=== PATIENT | male | born 1970 | race Caucasian/White ===

== ENCOUNTER 2016-10-26 15:03 | Inpatient (IN) | payer BC, OTHER ==
[2016-10-26 15:24] VITALS: BMI 31.1
[2016-10-26] MEDS ORDERED: ACETAMINOPHEN 500 MG TABLET (FP) PO ONE (15:25)
[2016-10-26 16:24] LABS: BASOPHIL 0.4 % (0-2.0); EOSINOPHIL 1.1 % (0-4.5); MCH 27.8 pg (25.7-33.7); MCHC 32.7 g/dl (32.0-35.9); MEAN PLT VOLUME 7.9 fl (7.5-11.1); NEUTROPHILS 74.9 % (42.8-82.8); PLATELET COUNT 439 K/MM3 (134-434); RDW 12.8 % (11.9-15.9); WHITE BLOOD COUNT 15.3 K/mm3 (4.0-10.0)
[2016-10-26 16:29] LABS: URINE APPEARANCE CLEAR; URINE BILIRUBIN NEGATIVE (NEGATIVE); URINE COLOR STRAW; URINE GLUCOSE (UA) 3+ (NEGATIVE); URINE KETONE 2+ (NEGATIVE); URINE LEUK ESTERASE NEGATIVE (NEGATIVE); URINE NITRITE NEGATIVE (NEGATIVE); URINE PROTEIN NEGATIVE (NEGATIVE); URINE UROBILINOGEN NEGATIVE E.U./dl (0.2-1.0)
[2016-10-26 16:35] LABS: URINE BLOOD 1+ (NEGATIVE)
[2016-10-26 16:41] LABS: INR 1.25 (0.82-1.09); PROTHROMBIN TIME (PATIENT) 13.8 SEC (9.98-11.88)
[2016-10-26 16:43] LABS: ACTIVATED PTT 36.2 SECONDS (26.9-34.4)
[2016-10-26 16:59] LABS: URINE RBC <1 /hpf (0-3); URINE WBC <1 /hpf (3-5)
[2016-10-26 17:00] LABS: ALBUMIN 3.3 g/dl (3.4-5.0); ANION GAP 14 (8-16); BILIRUBIN,TOTAL 0.4 mg/dL (0.2-1.0); CALCIUM 8.7 mg/dL (8.5-10.1); CO2 22 mmol/L (21-32); CREATININE 0.8 mg/dL (0.7-1.3); GLUCOSE,RANDOM 107 mg/dL (74-106); SGOT/AST 16 U/L (15-37); SGPT/ALT 19 U/L (12-78); TOT PROT 8.1 g/dl (6.4-8.2)
[2016-10-26 17:03] LABS: ALK PHOS 85 U/L (45-117); TROPONIN I < 0.02 ng/ml (0.00-0.05)
--- NOTE | 2016-10-26 18:06 | PDOC ---
History of Present Illness - General Chief Complaint: Wound Infection Stated Complaint: ULCER/ RT FOOT (WOUND CARE SENT) Time Seen by Provider: 10/26/16 15:18 History Source: Patient Exam Limitations: No Limitations - History of Present Illness Initial Comments: CHIEF COMPLAINT: 46 y/o febrile, tachycardic male with PMH IDDM, osteomyelitis c/o right toe pain, swelling and fever. HISTORY OF PRESENT ILLNESS: The patient states he has been going to the wound clinic for his right big toe for a while and it's been stable. Over the past 2 weeks, he's had the flu and all of a sudden his right toe wound became worse. He states today he went to the wound clinic and they sent him down here. He admits his entire right LE is swollen, red and warm. He also admits to intermittent fevers. He denies IVAN, n/v/d, CP, SOB, abd pain, back pain, streaking. Vital signs on arrival are notable for pulse of 122 secondary to temp of 101. REVIEW OF SYSTEMS: GENERAL/CONSTITUTIONAL: + fever/chills. No weakness. No weight change. HEAD, EYES, EARS, NOSE AND THROAT: No change in vision. No ear pain or discharge. No sore throat. CARDIOVASCULAR: No chest pain or shortness of breath. RESPIRATORY: No cough, wheezing, or hemoptysis. GASTROINTESTINAL: No abd pain, nausea, vomiting, diarrhea. GENITOURINARY: No dysuria, frequency, or change in urination. MUSCULOSKELETAL: +right lower extremity swelling and redness. +open wound on right big toe. No neck or back pain. SKIN: No rash or easy bruising. NEUROLOGIC: No headache, vertigo, loss of consciousness, or loss of sensation. PHYSICAL EXAM: GENERAL: The patient is awake, alert, and fully oriented, in no acute distress. He is well appearing and ambulatory. He has a soft shoe on his right foot. HEAD: Normal with no signs of trauma. ENT: Pupils equal, round and reactive to light, extraocular movements intact, sclera anicteric, conjunctiva clear. Neck supple. LUNGS: Clear to auscultation bilaterally. Normal excursion. No respiratory distress or use of accessory muscles. CV: RRR, S1/S2, no MRG. Cap refill < 2 sec. ABDOMEN: Soft, non-distended, non-tender even to deep palpation, no hepatomegaly or splenomegaly, no masses. EXTREMITIES: Normal range of motion. Significant edematous and erythematous changes to right LE up to right knee with 2+ pitting edema. Right LE is warm to touch compared to left. Medial aspect of right 1st toe has an open wound without evidence of necrotic tissue. No streaking. NEUROLOGICAL: Normal speech, normal gait. CN II-XII grossly intact. PSYCH: Normal mood, normal affect. SKIN: Warm, dry, normal turgor, no rashes or lesions noted. Past History - Past Medical History Allergies/Adverse Reactions: Allergies Allergy/AdvReac Type Severity Reaction Status Date / Time daptomycin [From Cubicin] Allergy Severe Verified 10/26/16 15:18 Home Medications: Ambulatory Orders Canagliflozin [Invokana] 300 mg PO DAILY 02/19/16 Insulin Aspart [Novolog] 10 - 20 units SCJ ASDIR PRN 02/19/16 Insulin Glargine,Hum.rec.anlog [Toujeo Solostar] 70 unit SQ ASDIR 02/19/16 Losartan Potassium [Cozaar -] 50 mg PO DAILY 02/19/16 Aspirin [Ecotrin] 81 mg PO DAILY 03/02/16 Oxycodone HCl/Acetaminophen [Percocet 5-325 mg Tablet] 1 tab PO Q6H #30 tablet MDD 4 04/08/16 Collagenase Clostridium Hist. [Santyl] 90 gm TP DAILY #90 oint...g. 06/08/16 Mupirocin Ointment [Bactroban 2% Ointment -] 1 applic TP BID #30 applic Levofloxacin [Levaquin -] 500 mg PO DAILY #14 tablet 06/29/16 Levofloxacin 500 mg Ivpb [Levaquin 500 mg Premixed Ivpb -] 500 mg IVPB DAILY # 10 bag MDD 1 07/13/16 Collagenase Clostridium Hist. [Santyl] 1 applic TP BID #90 oint...g. 09/28/16 Mupirocin Cream [Bactroban 2% Cream -] 1 applic TP BID #1 tube 09/28/16 Diabetes: Yes HTN: Yes - Psycho/Social/Smoking Cessation Hx Suicidal Ideation: No Smoking History: Never smoked Have you smoked in the past 12 months: Yes Cigars Per Day: 1 *Physical Exam - Vital Signs Last Vital Signs Temp Pulse Resp BP Pulse Ox 101.0 F H 122 H 18 147/83 98 10/26/16 15:19 10/26/16 15:19 10/26/16 15:19 10/26/16 15:19 10/26/16 15:19 ED Treatment Course - LABORATORY CBC & Chemistry Diagram: 10/26/16 16:00 10/26/16 16:00 - ADDITIONAL ORDERS Additional order review: Laboratory Results 10/26/16 10/26/16 10/26/16 16:00 16:00 16:00 INR 1.25 H PTT (Actin FS) 36.2 H Sodium 136 Potassium 4.1 Chloride 100 Carbon Dioxide 22 D Anion Gap 14 BUN 15 D Creatinine 0.8 Creat Clearance w eGFR > 60 Random Glucose 107 H D Calcium 8.7 Total Bilirubin 0.4 D AST 16 ALT 19 Alkaline Phosphatase 85 Creatine Kinase 145 Troponin I < 0.02 Total Protein 8.1 Albumin 3.3 L Urine Color Straw Urine Appearance Clear Urine pH 5.0 Ur Specific [place] 1.032 Urine Protein Negative Urine Glucose (UA) 3+ H Urine Ketones 2+ H Urine Blood 1+ H Urine Nitrite Negative Urine Bilirubin Negative Urine Urobilinogen Negative Ur Leukocyte Esterase Negative Urine RBC <1 Urine WBC <1 10/26/16 16:00 RBC 4.37 MCV 85.0 MCHC 32.7 RDW 12.8 MPV 7.9 D Neutrophils % 74.9 D Lymphocytes % 13.9 D Monocytes % 9.7 Eosinophils % 1.1 Basophils % 0.4 - Medications Given in the ED: ED Medications Discontinued Medications Generic Name Dose Route Start Last Admin Trade Name Freq PRN Reason Stop Dose Admin Acetaminophen 975 mg 10/26/16 15:25 10/26/16 16:04 Tylenol - PO 10/26/16 15:26 975 mg ONCE ONE Administration Medical Decision Making - Medical Decision Making A/P: 46 y/o male with probably osteomyelitis in right big toe. Plan is as follows: 1. Labs 2. Xray right toe 3. CXR CXR IMPRESSION: Unremarkable examination without evidence of acute lung disease. Xray right foot IMPRESSION: Bone erosion involving medial aspect of the first metatarsal head and base of the first proximal phalanx with overlying soft tissue swelling compatible with the clinical history of osteomyelitis. Further evaluation with MRI is needed. WBC count = 15 Ordered IV zosyn and IV fluids Pt had PO tylenol in triage. Spoke with Dr. Reggie Akins, his PCP, who accepts admission and would like Dr. Love consulted for ID. Pt made aware of the plan and is amenable. *DC/Admit/Observation/Transfer Diagnosis at time of Disposition: Wound infection Cellulitis Qualifiers: Site of cellulitis: extremity Site of cellulitis of extremity: toe Laterality: right Qualified Code(s): L03.031 - Cellulitis of right toe Osteomyelitis Qualifiers: Osteomyelitis location: foot Laterality: right Chronicity: acute Qualified Code (s): M86.171 - Other acute osteomyelitis, right ankle and foot - Discharge Dispostion Admit: Yes - Referrals Referrals: Reggie Akins MD [Primary Care Provider] -
[2016-10-26] MEDS ORDERED: SODIUM CHLORIDE 1,000 ML IV STA (18:12)
[2016-10-26] MEDS ORDERED: PIPERACILLIN/TAZOB 3.375 GM/50 ML PRE-DOCKED IVPB ONE (18:13)
[2016-10-26] MEDS ORDERED: PIPERACILLIN/TAZOB 3.375 GM 50 ML IVPB ONE (18:27)
--- NOTE | 2016-10-26 18:34 | PDOC ---
*Physical Exam - Vital Signs Last Vital Signs Temp Pulse Resp BP Pulse Ox 101.0 F H 122 H 18 147/83 98 10/26/16 15:19 10/26/16 15:19 10/26/16 15:19 10/26/16 15:19 10/26/16 15:19 ED Treatment Course - LABORATORY CBC & Chemistry Diagram: 10/26/16 16:00 10/26/16 16:00 - ADDITIONAL ORDERS Additional order review: Laboratory Results 10/26/16 10/26/16 10/26/16 16:00 16:00 16:00 INR 1.25 H PTT (Actin FS) 36.2 H Sodium 136 Potassium 4.1 Chloride 100 Carbon Dioxide 22 D Anion Gap 14 BUN 15 D Creatinine 0.8 Creat Clearance w eGFR > 60 Random Glucose 107 H D Calcium 8.7 Total Bilirubin 0.4 D AST 16 ALT 19 Alkaline Phosphatase 85 Creatine Kinase 145 Troponin I < 0.02 Total Protein 8.1 Albumin 3.3 L Urine Color Straw Urine Appearance Clear Urine pH 5.0 Ur Specific [place] 1.032 Urine Protein Negative Urine Glucose (UA) 3+ H Urine Ketones 2+ H Urine Blood 1+ H Urine Nitrite Negative Urine Bilirubin Negative Urine Urobilinogen Negative Ur Leukocyte Esterase Negative Urine RBC <1 Urine WBC <1 10/26/16 16:00 RBC 4.37 MCV 85.0 MCHC 32.7 RDW 12.8 MPV 7.9 D Neutrophils % 74.9 D Lymphocytes % 13.9 D Monocytes % 9.7 Eosinophils % 1.1 Basophils % 0.4 - Medications Given in the ED: ED Medications Discontinued Medications Generic Name Dose Route Start Last Admin Trade Name Alexis PRN Reason Stop Dose Admin Acetaminophen 975 mg 10/26/16 15:25 10/26/16 16:04 Tylenol - PO 10/26/16 15:26 975 mg ONCE ONE Administration Piperacillin Sod/Tazobactam Sod 3.375 gm 10/26/16 18:13 10/26/16 18:30 Zosyn 3.375gm Ivpb (Pre-Docked) IVPB 10/26/16 18:14 3.375 gm NOW ONE Administration Protocol Medical Decision Making - Medical Decision Making 10/26/16 18:33 Pt seen by the Advanced Practice Provider under my direct supervision Ancillary studies reviewed I agree with plan as outlined by the Advanced Practice Provider JOSELUIS Angela *DC/Admit/Observation/Transfer Diagnosis at time of Disposition: Wound infection Cellulitis Qualifiers: Site of cellulitis: extremity Site of cellulitis of extremity: toe Laterality: right Qualified Code(s): L03.031 - Cellulitis of right toe Osteomyelitis Qualifiers: Osteomyelitis location: foot Laterality: right Chronicity: acute Qualified Code (s): M86.171 - Other acute osteomyelitis, right ankle and foot - Referrals Referrals: Reggie Akins MD [Primary Care Provider] - - Patient Instructions - Post Discharge Activity
[2016-10-26 19:01] LABS: VENOUS PH 7.34 (7.32-7.42)
[2016-10-26] MEDS ORDERED: VANCOMYCIN 1 GRAM (PRE-DOCKED) 1,000 MG/250 ML BAG IVPB ONE (22:00)
[2016-10-26] MEDS: SODIUM CHLORIDE 0.45% 1,000 ML IV SCH (22:23)
[2016-10-26] MEDS: INSULIN SLIDING SCALE (NOVOLOG) 1 VIAL SQ SCH (22:38)
[2016-10-27] MEDS ORDERED: VANCOMYCIN 1 GRAM (PRE-DOCKED) 1,000 MG/250 ML BAG IVPB ONE (00:30)
[2016-10-27] MEDS: INSULIN SLIDING SCALE (NOVOLOG) 1 VIAL SQ SCH ×5 (06:51→21:24)
[2016-10-27 07:21] LABS: MCH 28.5 pg (25.7-33.7); MCHC 32.8 g/dl (32.0-35.9); MEAN CELL VOLUME 86.8 fl (80-96); MEAN PLT VOLUME 7.8 fl (7.5-11.1); PLATELET COUNT 382 K/MM3 (134-434); RDW 12.8 % (11.9-15.9); WHITE BLOOD COUNT 10.5 K/mm3 (4.0-10.0)
[2016-10-27 08:10] LABS: ANION GAP 13 (8-16); BILIRUBIN,TOTAL 0.6 mg/dL (0.2-1.0); CALCIUM 8.5 mg/dL (8.5-10.1); CO2 23 mmol/L (21-32); CREATININE 0.6 mg/dL (0.7-1.3); GLUCOSE,RANDOM 93 mg/dL (74-106); SGOT/AST 12 U/L (15-37); SGPT/ALT 15 U/L (12-78)
[2016-10-27 08:11] LABS: ALK PHOS 71 U/L (45-117); TOT PROT 7.3 g/dl (6.4-8.2)
[2016-10-27] MEDS: ASPIRIN COATED 81 MG TABLET.EC PO SCH (09:56)
[2016-10-27] MEDS: PANTOPRAZOLE 40 MG TABLET (FP) PO SCH (09:56)
[2016-10-27] MEDS ORDERED: INVOKANA 300 MG PO SCH (10:00)
[2016-10-27] MEDS ORDERED: VANCOMYCIN 1 GRAM (PRE-DOCKED) 1,000 MG/250 ML BAG IVPB SCH (10:00)
[2016-10-27] MEDS ORDERED: PNEUMOC 13-VAL CONJ-DIP CRM/PF 0.5 ML DISP.SYRIN IM ONE (10:00)
--- NOTE | 2016-10-27 10:22 | CONSULT ---
Consult Consult Specialty:: Podiatry/Wound Care Referred by:: Reggie Akins Reason for Consultation:: Infected right foot ulcer - History of Present Illness Chief Complaint: I have a wound on my Right foot that has gotten worse History of Present Illness: The patient is well known to me, last seen at wound clinic on 09/28/2016 for a non healing ulcer right. He was told to get MRI but has not to date. Over the past 2 weeks, he's had the flu and all of a sudden his right toe wound became worse. He telephoned me on Monday and I instructed to him top got to he wound clininc on Monday which he did and they sent him for admission based on his clinical presentation.. He admits his entire right LE is swollen, red and warm. He also admits to intermittent fevers. He denies IVAN, n/v/d, CP, SOB, abd pain, back pain, streaking. He states today he feels much better and has no more pain and the redeness and swelling have decreased. - History Source History Provided By: Patient Limitations to Obtaining History: No Limitations - Alcohol/Substance Use Hx Alcohol Use: No - Smoking History Smoking history: Never smoked Have you smoked in the past 12 months: No Home Medications - Allergies Allergies/Adverse Reactions: Allergies Allergy/AdvReac Type Severity Reaction Status Date / Time daptomycin [From Cubicin] Allergy Severe Verified 10/26/16 15:18 - Home Medications Home Medications: Ambulatory Orders Canagliflozin [Invokana] 300 mg PO DAILY 02/19/16 Insulin Aspart [Novolog] 10 - 20 units SCJ ASDIR PRN 02/19/16 Mupirocin Ointment [Bactroban 2% Ointment -] 1 applic TP BID #30 applic Collagenase Clostridium Hist. [Santyl] 1 applic TP BID #90 oint...g. 09/28/16 Review of Systems - Review of Systems Constitutional: reports: No Symptoms Eyes: reports: No Symptoms HENT: reports: No Symptoms Neck: reports: No Symptoms Cardiovascular: reports: No Symptoms Respiratory: reports: No Symptoms Gastrointestinal: reports: No Symptoms Genitourinary: reports: No Symptoms Musculoskeletal: reports: No Symptoms Integumentary: reports: Wound (Right foot: full thickness wound at the DME with 80% granular base and 20% fibrotic tissue, no drainsge no mal odor no ascending cellulits, no plapable nodes. + Superfical bullae noted) Neurological: reports: No Symptoms Endocrine: reports: No Symptoms Hematology/Lymphatic: reports: No Symptoms Psychiatric: reports: No Symptoms Pain Intensity: 0 (Patetin neuropathic due to DM) Physical Exam Vital Signs: Vital Signs Temperature 98.8 F 10/27/16 08:00 Pulse Rate 104 H 10/27/16 08:00 Respiratory Rate 20 10/27/16 08:00 Blood Pressure 141/82 10/27/16 08:00 O2 Sat by Pulse Oximetry (%) 96 10/27/16 08:00 Constitutional: Yes: Well Nourished, No Distress, Calm Musculoskeletal: Yes: WNL Edema: No Edema: LLE: Trace, RLE: Trace Peripheral Pulses WNL: Yes Integumentary: Yes: Other (Right foot: full thickness wound at the DME with 80% granular base and 20% fibrotic tissue, no drainsge no mal odor no ascending cellulits, no plapable nodes. + Superfical bullae noted) Wound/Incision: Yes: Dressing Dry and Intact Neurological: Yes: WNL, Alert, Oriented, Cran Nerves II-XII Intact ...Motor Strength: WNL Psychiatric: Yes: Alert, Oriented Labs: CBC, BMP 10/27/16 05:35 10/27/16 05:35 Imaging - Results Chest X-ray: Report Reviewed X-ray: Report Reviewed, Image Reviewed (Changes concictant with Osteomyelitis. Will get MRI) Other: Pending (Bone Scan) Problem List - Problems (1) Cellulitis Assessment/Plan: Continue Iv Abx as cellulitis is resolving Code(s): L03.90 - CELLULITIS, UNSPECIFIED Qualifiers: Site of cellulitis: extremity Site of cellulitis of extremity: toe Laterality: right Qualified Code(s): L03.031 - Cellulitis of right toe (2) Wound infection Assessment/Plan: Contiue Abx Collagenase dressing Daily Code(s): T14.8 - OTHER INJURY OF UNSPECIFIED BODY REGION L08.9 - LOCAL INFECTION OF THE SKIN AND SUBCUTANEOUS TISSUE, UNSP (3) Osteomyelitis due to secondary diabetes Assessment/Plan: No surgery needed at this time. I did D/W patient the need for possible future surgery. At this time I would recommend 1) MRI 2) PIC Line wth 6 weeks Abx Code(s): E13.69 - OTH DIABETES MELLITUS WITH OTHER SPECIFIED COMPLICATION M86.9 - OSTEOMYELITIS, UNSPECIFIED (4) Type 2 diabetes mellitus with foot ulcer Assessment/Plan: As per primary team Code(s): E11.621 - TYPE 2 DIABETES MELLITUS WITH FOOT ULCER L97.509 - NON-PRESSURE CHRONIC ULCER OTH PRT UNSP FOOT W UNSP SEVERITY (5) Hematoma Assessment/Plan: Aseptically drained at bedside with Betadine DSD applied Code(s): T14.8 - OTHER INJURY OF UNSPECIFIED BODY REGION Assessment/Plan See above Recommend: 1) MRI to document and confirm level of OM ( will be helpful in if future surgery needed ) 2) PIC Line with 6 weeks IV Abx 3) Collagenase daily to Right foot ulcer 4) Follow up in Wound Center upon D/C 5) Re consult as needed
--- NOTE | 2016-10-27 10:57 | HP ---
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 wd last bernardo he seen me 7 16 aic 7.5 w me aic 6.3 had flu 2 wks ago now subsided has no other complaints History Source: Patient Limitations to Obtaining History: No Limitations - Past Medical History Infectious Disease: Yes: Other (rt toe great) - Past Surgical History Past Surgical History: Yes: Amputation (rt mid toe and rt nerve realease w rt sole bone sx) - Smoking History Smoking history: Never smoked Have you smoked in the past 12 months: No - Alcohol/Substance Use Hx Alcohol Use: No - Social History ADL: Independent History of Recent Travel: No Home Medications - Allergies Allergies/Adverse Reactions: Allergies Allergy/AdvReac Type Severity Reaction Status Date / Time daptomycin [From Cubicin] Allergy Severe Verified 10/26/16 15:18 - Home Medications Home Medications: Ambulatory Orders Canagliflozin [Invokana] 300 mg PO DAILY 02/19/16 Insulin Aspart [Novolog] 10 - 20 units SCJ ASDIR PRN 02/19/16 Mupirocin Ointment [Bactroban 2% Ointment -] 1 applic TP BID #30 applic Collagenase Clostridium Hist. [Santyl] 1 applic TP BID #90 oint...g. 09/28/16 Family Disease History - Family Disease History Family History: Unremarkable Review of Systems - Review of Systems Constitutional: reports: No Symptoms HENT: reports: No Symptoms Neck: reports: No Symptoms Respiratory: reports: No Symptoms Gastrointestinal: reports: No Symptoms Genitourinary: reports: No Symptoms Breasts: reports: No Symptoms Reported Musculoskeletal: reports: Other (rt toe mild pain) Integumentary: reports: No Symptoms Neurological: reports: No Symptoms Endocrine: reports: No Symptoms Hematology/Lymphatic: reports: No Symptoms Psychiatric: reports: No Symptoms Physical Examination Vital Signs: Vital Signs Temperature 98.8 F 10/27/16 08:00 Pulse Rate 104 H 10/27/16 08:00 Respiratory Rate 20 10/27/16 08:00 Blood Pressure 141/82 10/27/16 08:00 O2 Sat by Pulse Oximetry (%) 96 10/27/16 08:00 Constitutional: Yes: Well Nourished Eyes: Yes: WNL HENT: Yes: WNL Neck: Yes: WNL Cardiovascular: Yes: WNL Respiratory: Yes: WNL Gastrointestinal: Yes: WNL ...Rectal Exam: Yes: Deferred Renal/: Yes: WNL Breast(s): Yes: WNL Musculoskeletal: Yes: WNL Extremities: Yes: Other (rt dsd intact) Edema: No Peripheral Pulses WNL: Yes Integumentary: Yes: WNL Wound/Incision: Yes: Dressing Dry and Intact Neurological: Yes: WNL ...Motor Strength: WNL Psychiatric: Yes: WNL Labs: CBC, BMP 10/27/16 05:35 10/27/16 05:35 Assessment/Plan id to f/u peak trough levels bone scan to conferm ostoeomylitis cont tx as is //? debridment needed labs in am cont tight control fs
--- NOTE | 2016-10-27 14:47 | PN ---
Progress Note (short form) - Note Progress Note: ID Consult dictated Infected foot ulcer/ cellulitis R foot Possible R foot abscess/ osteomyelitis IDDM Surgical evaluation MRI Empiric vancomycin/ zosyn
--- NOTE | 2016-10-27 14:48 | EKG ---
Test Reason : Blood Pressure : / mmHG Vent. Rate : 099 BPM Atrial Rate : 099 BPM P-R Int : 120 ms QRS Dur : 088 ms QT Int : 346 ms P-R-T Axes : 055 -12 010 degrees QTc Int : 444 ms NORMAL SINUS RHYTHM NORMAL ECG NO PREVIOUS ECGS AVAILABLE Confirmed by JEFF MCNALLY MD ([id number]) on 10/27/2016 2:47:34 PM Referred By: Confirmed By:JEFF MCNALLY MD
--- NOTE | 2016-10-27 15:04 | CONSULT ---
- Consultation REQUESTED PROVIDER: Dr. Culp, vascular surgery CONSULT REQUEST: We have been asked to surgically evaluate this patient for right foot diabetic ulcer. PCP: Reggie Akins HISTORY OF PRESENT ILLNESS: 46 yo male with PMH of IDDM and osteomyelitis s/p right third toe amputation presented with right first toe/metatarsal head ulceration since June 2016. Patient by Dr. Culp and then Dr. Vale at the wound care clinic for his nonhealing ulcer. Patient states he had fever and chills last week and thought he was getting the flu. Following this he developed pain worsening pain in this right foot around the ulceration and the pain traveled up his leg. He admits to having some increased swelling and redness in his right foot, but feels this is improving. The patient states he was seen earlier today by Dr. Vale who was able to drain some blood from his foot. PMHx: IDDM PSHx: right 3rd toe amputation Home Medications Medication Instructions Recorded Canagliflozin [Invokana] 300 mg PO DAILY 02/19/16 Insulin Aspart [Novolog] 10 - 20 units SCJ ASDIR PRN 02/19/16 Mupirocin Ointment [Bactroban 2% 1 applic TP BID #30 applic 06/08/16 Ointment -] Collagenase Clostridium Hist. 1 applic TP BID #90 oint...g. 09/28/16 [Santyl] Allergies Allergy/AdvReac Type Severity Reaction Status Date / Time daptomycin [From Cubicin] Allergy Severe Verified 10/26/16 15:18 REVIEW OF SYSTEMS: CONSTITUTIONAL: Admits: Fever, chills (resolved) Absent: generalized weakness, loss of appetite CARDIOVASCULAR: Absent: chest pain, syncope, palpitations RESPIRATORY: Absent: cough, shortness of breath GASTROINTESTINAL: Absent: abdominal pain, abdominal distension, nausea, vomiting, diarrhea, constipation GENITOURINARY: Absent: dysuria, frequency, urgency MUSCULOSKELETAL: Absent: myalgia, arthralgia, back pain, neck pain SKIN: Present: Ulceration right foot, first metatarsal head Absent: rash, itching HEMATOLOGIC/IMMUNOLOGIC: Absent: easy bleeding, easy bruising NEUROLOGIC: Present: Admits occasional tingling in lower extremities Absent: headache, dizziness PSYCHIATRIC: Absent: anxiety, depression PHYSICAL EXAM: GENERAL: Awake, alert, and fully oriented, in no acute distress. HEAD: Normal with no signs of trauma. EYES: PERRL, sclera anicteric, conjunctiva clear. NECK: Normal ROM, supple LUNGS: Clear to auscultation bilat anteriorly HEART: Regular rate and rhythm ABDOMEN: Soft, nontender, not distended MUSCULOSKELETAL: Normal ROM at all joints UPPER EXTREMITIES: 2+ pulses, warm, well-perfused. No cyanosis. Cap refill <2 seconds. No peripheral edema. LOWER EXTREMITIES: 2+ pulses, warm, well-perfused. RLE with approx 3x3 cm ulceration right first metatarsal head without odor or ascending erythema of RLE NEUROLOGICAL: Normal speech, gait not observed. PSYCH: Cooperative. Good eye contact. Appropriate mood and affect. SKIN: Warm, dry, normal turgor, no rashes or lesions noted. Vital Signs Temperature 98.0 F 10/27/16 14:00 Pulse Rate 93 H 10/27/16 14:00 Respiratory Rate 21 10/27/16 14:00 Blood Pressure 141/82 10/27/16 08:00 O2 Sat by Pulse Oximetry (%) 96 10/27/16 08:00 Lab Results WBC 10.5 K/mm3 (4.0-10.0) H D 10/27/16 05:35 RBC 4.13 M/mm3 (4.00-5.60) 10/27/16 05:35 Hgb 11.8 GM/dL (11.7-16.9) 10/27/16 05:35 Hct 35.9 % (35.4-49) 10/27/16 05:35 MCV 86.8 fl (80-96) 10/27/16 05:35 MCHC 32.8 g/dl (32.0-35.9) 10/27/16 05:35 RDW 12.8 % (11.9-15.9) 10/27/16 05:35 Plt Count 382 K/MM3 (134-434) 10/27/16 05:35 Sodium 139 mmol/L (136-145) 10/27/16 05:35 Potassium 4.3 mmol/L (3.5-5.1) 10/27/16 05:35 Chloride 103 mmol/L (98-107) 10/27/16 05:35 Carbon Dioxide 23 mmol/L (21-32) 10/27/16 05:35 Anion Gap 13 (8-16) 10/27/16 05:35 BUN 8 mg/dL (7-18) D 10/27/16 05:35 Creatinine 0.6 mg/dL (0.7-1.3) L D 10/27/16 05:35 Random Glucose 93 mg/dL (74-106) 10/27/16 05:35 Calcium 8.5 mg/dL (8.5-10.1) 10/27/16 05:35 Blood Type O POSITIVE 10/26/16 21:38 Antibody Screen Negative 10/26/16 21:30 INR 1.25 (0.82-1.09) H 10/26/16 16:00 Problem List - Problems (1) Cellulitis Code(s): L03.90 - CELLULITIS, UNSPECIFIED Qualifiers: Site of cellulitis: extremity Site of cellulitis of extremity: toe Laterality: right Qualified Code(s): L03.031 - Cellulitis of right toe (2) Type 2 diabetes mellitus with foot ulcer Assessment/Plan: Patient has good peripheral pulses, no need for vascular intervention at this time Continue Abx per ID Continue Santyl to right foot ulcer MRI ordered by ID Continue care by Podiatry Code(s): E11.621 - TYPE 2 DIABETES MELLITUS WITH FOOT ULCER L97.509 - NON-PRESSURE CHRONIC ULCER OTH PRT UNSP FOOT W UNSP SEVERITY Visit type - Case Type Case Type: ED Admission - New patient This patient is new to me today: Yes Date on this admission: 10/27/16
[2016-10-27] MEDS: PIPERACILLIN/TAZOB 3.375 GM 50 ML IVPB SCH ×2 (15:36→16:29)
--- NOTE | 2016-10-27 16:08 | CONS ---
DATE OF CONSULTATION: DATE OF DICTATION: 10/27/2016 The patient is a 46-year-old male, diabetic, evaluated for cellulitis and infected foot ulcer of the right foot. The patient has had had a history of diabetic foot infections in the past. Approximately 3 years ago he developed cellulitis of the right 3rd toe, eventually requiring amputation. He now presents with a 2-week history of worsening right foot swelling, erythema, and pain. He had developed an ulcer on the lateral aspect of the 1st metatarsal head and was being followed in the wound care center. He was advised by a tax record clerk to have an MRI but apparently this was not done. His foot became progressively more swollen, red, and tender. [facility] and was referred to the emergency room for admission. He has been experiencing some subjective fever. In the emergency room, his temperature was 101. He denies any purulent wound drainage. Patient has had a history of diabetic foot infections in the past. At one point he was on outpatient IV antibiotic therapy with DAPTOMYCIN. He specifically denies history of MRSA infection, however. Past medical history positive for insulin-dependent diabetes mellitus, osteomyelitis, hypertension. Allergies to DAPTOMYCIN. Patient reported diffuse muscle pain. Denies a history of rash or anaphylaxis. Medications as an outpatient include Ecotrin, insulin, Invokana, Protonix. SOCIAL HISTORY: He lives in the community. Nonsmoker, nondrinker. Denies history of illicit drug use. SYSTEMS REVIEW: Neurologic: No loss of consciousness, seizure activity, focal weakness. Cardiac: Negative chest pain or palpitations. Respiratory: Negative cough or sputum production. Gastrointestinal: Negative vomiting or diarrhea. Genitourinary: Negative for urinary tract infection. LABORATORY DATA: White count 10.5, hematocrit 35.9, platelets 382, creatinine 0.6. Urinalysis: Less than 1 white cell. PHYSICAL EXAMINATION: General: He is awake, alert, he is not acutely toxic appearing. Vital Signs: Temperature 98.8, T-max 101. Blood pressure 141/82. Pulse 104, regular. Respiration 20 per minute. Eyes: Sclerae anicteric. Heart Sounds: S1, S2. Lungs: Clear. No rhonchi, rales or wheezing. Abdomen: Soft. No tenderness elicited. No mass, rebound or rigidity. Extremities: The right lower extremity, there is diffuse swelling of the right foot. There is an ulceration present on the medial aspect of the 1st metatarsal head. There is a bullous lesion present over the dorsal aspect of the 1st metatarsal head. There is diffuse swelling of the great toe and dorsum of the foot. There is a superficial ulceration present on the plantar aspect of the right 5th metatarsal head. IMPRESSION: 1. Infected diabetic foot ulcer/cellulitis of the right foot. 2. Possible underlying abscess/osteomyelitis. 3. Diabetes mellitus. 4. Possible sepsis secondary to foot infection. Surgical evaluation. Obtain MRI, sedimentation rate, C-reactive protein. Empiric antibiotic coverage with vancomycin and Zosyn. Local wound care. Will follow. Thank you for the kind referral. TAMMIE SAN M.D. [id number]
[2016-10-27] MEDS ORDERED: INSULIN (NOVOLOG) ASPART 100 UNITS/ML 10ML VIAL ONE ×2 (16:15→21:23)
[2016-10-27] MEDS: SODIUM CHLORIDE 0.45% 1,000 ML IV SCH (21:19)
[2016-10-27] MEDS: VANCOMYCIN 1 GRAM (PRE-DOCKED) 250 ML IVPB SCH (21:19)
[2016-10-27] MEDS: COLLAGENASE CLOSTRIDIUM HIST. 30 GRAMS TUBE TP SCH (23:11)
[2016-10-28] MEDS: PIPERACILLIN/TAZOB 3.375 GM 50 ML IVPB SCH ×3 (01:33→17:26)
[2016-10-28] MEDS: INSULIN SLIDING SCALE (NOVOLOG) 1 VIAL SQ SCH ×4 (06:39→22:27)
[2016-10-28 07:28] LABS: BASOPHIL 0.5 % (0-2.0); EOSINOPHIL 1.5 % (0-4.5); MCH 28.4 pg (25.7-33.7); MCHC 32.9 g/dl (32.0-35.9); MEAN CELL VOLUME 86.4 fl (80-96); MEAN PLT VOLUME 7.9 fl (7.5-11.1); NEUTROPHILS 67.1 % (42.8-82.8); PLATELET COUNT 415 K/MM3 (134-434); RDW 12.9 % (11.9-15.9); WHITE BLOOD COUNT 9.7 K/mm3 (4.0-10.0)
[2016-10-28 07:43] LABS: CALCIUM 8.7 mg/dL (8.5-10.1); CREATININE 0.6 mg/dL (0.7-1.3)
[2016-10-28 08:22] LABS: C-REACTIVE PROTEIN 10.5 MG/DL (0.00-0.3)
[2016-10-28] MEDS ORDERED: INSULIN (NOVOLOG) ASPART 100 UNITS/ML 10ML VIAL ONE (10:53)
[2016-10-28] MEDS: PANTOPRAZOLE 40 MG TABLET (FP) PO SCH (10:57)
[2016-10-28] MEDS: COLLAGENASE CLOSTRIDIUM HIST. 30 GRAMS TUBE TP SCH (10:57)
[2016-10-28] MEDS: VANCOMYCIN 1 GRAM (PRE-DOCKED) 250 ML IVPB SCH ×2 (10:57→22:08)
[2016-10-28] MEDS: ASPIRIN COATED 81 MG TABLET.EC PO SCH (10:57)
--- NOTE | 2016-10-28 12:31 | PN ---
Progress Note, Physician History of Present Illness: Reports less R foot and leg pain No fever/ chills Tolerating antibiotics ESR/CRP markedly elevated Wound c/s, MRI pending - Current Medication List Current Medications: Active Medications Aspirin (Ecotrin -) 81 mg PO DAILY [facility] Collagenase (Santyl -) 1 applic TP DAILY [facility] Last Admin: 10/28/16 10:57 Dose: 1 applic Sodium Chloride (1/2 Normal Saline) 1,000 mls @ 60 mls/hr IV ASDIR [facility] Last Admin: 10/27/16 21:19 Dose: 60 mls/hr Vancomycin HCl (Vancomycin (Pre-Docked)) 250 mls @ 250 mls/hr IVPB BID YESY PRN Reason: Protocol Last Admin: 10/28/16 10:57 Dose: 250 mls/hr Piperacillin Sod/Tazobactam Sod (Zosyn 3.375gm Ivpb (Pre-Docked)) 50 mls @ 100 mls/hr IVPB Q8H-IV YESY PRN Reason: Protocol Last Admin: 10/28/16 12:21 Dose: 100 mls/hr Insulin Aspart (Novolog Vial Sliding Scale -) 1 vial SQ ACHS YESY PRN Reason: Protocol Last Admin: 10/28/16 11:03 Dose: 2 unit Invokana 300 Mg Tab (- Patient Own Med) 1 each PO DAILY [facility] Pantoprazole Sodium (Protonix -) 40 mg PO DAILY [facility] Last Admin: 10/28/16 10:57 Dose: 40 mg - Objective Vital Signs: Vital Signs Temperature 97.7 F 10/28/16 06:09 Pulse Rate 75 10/28/16 06:09 Respiratory Rate 20 10/28/16 06:09 Blood Pressure 132/70 10/28/16 06:09 O2 Sat by Pulse Oximetry (%) 96 10/27/16 21:00 Constitutional: Yes: No Distress Eyes: Yes: Conjunctiva Clear Cardiovascular: Yes: Regular Rate and Rhythm, S1, S2 Respiratory: Yes: CTA Bilaterally Gastrointestinal: Yes: Normal Bowel Sounds, Soft. No: Tenderness Extremities: Yes: Other (decreased R foot/ LE swelling Slightly less erythema R foot) Labs: CBC, BMP 10/28/16 06:30 10/28/16 06:30 INR, PTT INR 1.25 (0.82-1.09) H 10/26/16 16:00 Assessment/Plan Infected R foot ulcer/ cellulitis Possible underlying abscess/ osteomyelitis Diabetes mellitus Await c/s , MRI Continue empiric vancomycin/ zosyn
[2016-10-28] MEDS: SODIUM CHLORIDE 0.45% 1,000 ML IV SCH (20:30)
[2016-10-29] MEDS: PIPERACILLIN/TAZOB 3.375 GM 50 ML IVPB SCH ×3 (02:54→17:20)
[2016-10-29] MEDS: INSULIN SLIDING SCALE (NOVOLOG) 1 VIAL SQ SCH ×4 (06:26→21:58)
[2016-10-29 07:43] LABS: BASOPHIL 0.5 % (0-2.0); EOSINOPHIL 1.3 % (0-4.5); MCH 28.4 pg (25.7-33.7); MEAN PLT VOLUME 7.6 fl (7.5-11.1); NEUTROPHILS 62.2 % (42.8-82.8); PLATELET COUNT 402 K/MM3 (134-434); RDW 12.8 % (11.9-15.9); WHITE BLOOD COUNT 8.8 K/mm3 (4.0-10.0)
[2016-10-29 08:18] LABS: CALCIUM 8.8 mg/dL (8.5-10.1); CREATININE 0.8 mg/dL (0.7-1.3)
[2016-10-29] MEDS: VANCOMYCIN 1 GRAM (PRE-DOCKED) 250 ML IVPB SCH (09:51)
[2016-10-29] MEDS: PANTOPRAZOLE 40 MG TABLET (FP) PO SCH (09:52)
[2016-10-29] MEDS: ASPIRIN COATED 81 MG TABLET.EC PO SCH (09:52)
--- NOTE | 2016-10-29 10:16 | PN ---
Progress Note (short form) - Note Progress Note: Vascular surgery Pt seen and examined. Well known from past. Palpable pulses. Right foot ulcer. Rule out osteo. Awaiting MRI Will need HBO as well upon DC Leland Culp DO
[2016-10-29] MEDS: COLLAGENASE CLOSTRIDIUM HIST. 30 GRAMS TUBE TP SCH (11:20)
[2016-10-29] MEDS ORDERED: INSULIN (NOVOLOG) ASPART 100 UNITS/ML 10ML VIAL ONE ×3 (11:35→21:55)
--- NOTE | 2016-10-29 12:11 | PN ---
Progress Note, Physician - Current Medication List Current Medications: Active Medications Aspirin (Ecotrin -) 81 mg PO DAILY [facility] Last Admin: 10/29/16 09:52 Dose: 81 mg Collagenase (Santyl -) 1 applic TP DAILY [facility] Last Admin: 10/28/16 10:57 Dose: 1 applic Sodium Chloride (1/2 Normal Saline) 1,000 mls @ 60 mls/hr IV ASDIR [facility] Last Admin: 10/28/16 20:30 Dose: 60 mls/hr Vancomycin HCl (Vancomycin (Pre-Docked)) 250 mls @ 250 mls/hr IVPB BID YESY PRN Reason: Protocol Last Admin: 10/29/16 09:51 Dose: 250 mls/hr Piperacillin Sod/Tazobactam Sod (Zosyn 3.375gm Ivpb (Pre-Docked)) 50 mls @ 100 mls/hr IVPB Q8H-IV YESY PRN Reason: Protocol Last Admin: 10/29/16 09:52 Dose: 100 mls/hr Insulin Aspart (Novolog Vial Sliding Scale -) 1 vial SQ ACHS YESY PRN Reason: Protocol Last Admin: 10/29/16 11:41 Dose: 4 unit Invokana 300 Mg Tab (- Patient Own Med) 1 each PO DAILY [facility] Pantoprazole Sodium (Protonix -) 40 mg PO DAILY [facility] Last Admin: 10/29/16 09:52 Dose: 40 mg - Objective Vital Signs: Vital Signs Temperature 98.2 F 10/29/16 06:25 Pulse Rate 91 H 10/29/16 10:00 Respiratory Rate 18 10/29/16 10:00 Blood Pressure 126/71 10/29/16 10:00 O2 Sat by Pulse Oximetry (%) 96 10/28/16 21:00 Labs: CBC, BMP 10/29/16 07:05 10/29/16 07:05 INR, PTT INR 1.25 (0.82-1.09) H 10/26/16 16:00 Assessment/Plan pt comfortable vss plan pic line glyburide po ada diet mri r/o abcess
--- NOTE | 2016-10-29 12:31 | PN ---
Progress Note, Physician History of Present Illness: Reports less RLE pain/ swelling No c/o fever/ chills Tolerating antibiotics MRI pending Wound c/s MSSA + second organism - Current Medication List Current Medications: Active Medications Aspirin (Ecotrin -) 81 mg PO DAILY [facility] Last Admin: 10/29/16 09:52 Dose: 81 mg Collagenase (Santyl -) 1 applic TP DAILY [facility] Last Admin: 10/28/16 10:57 Dose: 1 applic Glyburide (Diabeta -) 5 mg PO DAILY@0700 [facility] Sodium Chloride (1/2 Normal Saline) 1,000 mls @ 60 mls/hr IV ASDIR [facility] Last Admin: 10/28/16 20:30 Dose: 60 mls/hr Vancomycin HCl (Vancomycin (Pre-Docked)) 250 mls @ 250 mls/hr IVPB BID YESY PRN Reason: Protocol Last Admin: 10/29/16 09:51 Dose: 250 mls/hr Piperacillin Sod/Tazobactam Sod (Zosyn 3.375gm Ivpb (Pre-Docked)) 50 mls @ 100 mls/hr IVPB Q8H-IV YESY PRN Reason: Protocol Last Admin: 10/29/16 09:52 Dose: 100 mls/hr Insulin Aspart (Novolog Vial Sliding Scale -) 1 vial SQ ACHS [facility] PRN Reason: Protocol Last Admin: 10/29/16 11:41 Dose: 4 unit Invokana 300 Mg Tab (- Patient Own Med) 1 each PO DAILY [facility] Pantoprazole Sodium (Protonix -) 40 mg PO DAILY [facility] Last Admin: 10/29/16 09:52 Dose: 40 mg - Objective Vital Signs: Vital Signs Temperature 98.2 F 10/29/16 06:25 Pulse Rate 91 H 10/29/16 10:00 Respiratory Rate 18 10/29/16 10:00 Blood Pressure 126/71 10/29/16 10:00 O2 Sat by Pulse Oximetry (%) 96 10/28/16 21:00 Constitutional: Yes: No Distress Cardiovascular: Yes: Regular Rate and Rhythm, S1, S2 Respiratory: Yes: CTA Bilaterally Gastrointestinal: Yes: Normal Bowel Sounds, Soft Extremities: Yes: Other (decreased R LE swelling/ erythema/ warmth) Labs: CBC, BMP 10/29/16 07:05 10/29/16 07:05 INR, PTT INR 1.25 (0.82-1.09) H 10/26/16 16:00 Assessment/Plan Infected R foot ulcer/ cellulitis Possible underlying abscess/ osteomyelitis Diabetes mellitus Await final c/s , MRI Continue empiric zosyn D/C vancomycin
[2016-10-29] MEDS ORDERED: PICC LINE 8 ML FLUSH PROTOCOL IVPUSH PRN (13:00)
--- NOTE | 2016-10-29 15:25 | PN ---
Progress Note, Physician Chief Complaint: Right foot diabetic foot ulcer History of Present Illness: The patient is well known to me, Reports less RLE pain/ swelling No c/o fever/ chills Tolerating antibiotics MRI pending Wound c/s MSSA + second organism - Current Medication List Current Medications: Active Medications Aspirin (Ecotrin -) 81 mg PO DAILY [facility] Last Admin: 10/29/16 09:52 Dose: 81 mg Collagenase (Santyl -) 1 applic TP DAILY [facility] Last Admin: 10/28/16 10:57 Dose: 1 applic Glyburide (Diabeta -) 5 mg PO DAILY@0700 [facility] IV Flush (Picc Line Flush) 8 ml IVPUSH PRN PRN PRN Reason: Protocol Sodium Chloride (1/2 Normal Saline) 1,000 mls @ 60 mls/hr IV ASDIR [facility] Last Admin: 10/28/16 20:30 Dose: 60 mls/hr Piperacillin Sod/Tazobactam Sod (Zosyn 3.375gm Ivpb (Pre-Docked)) 50 mls @ 100 mls/hr IVPB Q8H-IV YESY PRN Reason: Protocol Last Admin: 10/29/16 09:52 Dose: 100 mls/hr Insulin Aspart (Novolog Vial Sliding Scale -) 1 vial SQ ACHS YESY PRN Reason: Protocol Last Admin: 10/29/16 11:41 Dose: 4 unit Invokana 300 Mg Tab (- Patient Own Med) 1 each PO DAILY [facility] Pantoprazole Sodium (Protonix -) 40 mg PO DAILY [facility] Last Admin: 10/29/16 09:52 Dose: 40 mg - Objective Vital Signs: Vital Signs Temperature 99.4 F 10/29/16 14:19 Pulse Rate 100 H 10/29/16 14:19 Respiratory Rate 18 10/29/16 10:00 Blood Pressure 125/110 10/29/16 14:19 O2 Sat by Pulse Oximetry (%) 96 10/28/16 21:00 Constitutional: Yes: Well Nourished, No Distress Musculoskeletal: Yes: WNL Extremities: Yes: WNL, Amputation (2nd tow right foot) Edema: No Peripheral Pulses WNL: Yes Peripheral Pulses: Left Doralis Pedis: 2+, Right Dorsalis Pedis: 2+, Left Femoral: 2+, Right Femoral: 2+ Integumentary: Yes: WNL Wound/Incision: Yes: Dressing Dry and Intact, Dressing Removed (Full thickness ulcer with mixed fibro-granular base at the DME. No drainge no mal odor no cellulitis.) Neurological: Yes: WNL, Alert, Oriented, Cran Nerves II-XII Intact Labs: CBC, BMP 10/29/16 07:05 10/29/16 07:05 INR, PTT INR 1.25 (0.82-1.09) H 10/26/16 16:00 - ....Imaging X-ray: Image Reviewed MRI: Pending Problem List - Problems (1) Cellulitis Code(s): L03.90 - CELLULITIS, UNSPECIFIED Qualifiers: Site of cellulitis: extremity Site of cellulitis of extremity: toe Laterality: right Qualified Code(s): L03.031 - Cellulitis of right toe (2) Wound infection Code(s): T14.8 - OTHER INJURY OF UNSPECIFIED BODY REGION L08.9 - LOCAL INFECTION OF THE SKIN AND SUBCUTANEOUS TISSUE, UNSP (3) Osteomyelitis due to secondary diabetes Code(s): E13.69 - OTH DIABETES MELLITUS WITH OTHER SPECIFIED COMPLICATION M86.9 - OSTEOMYELITIS, UNSPECIFIED (4) Type 2 diabetes mellitus with foot ulcer Code(s): E11.621 - TYPE 2 DIABETES MELLITUS WITH FOOT ULCER L97.509 - NON-PRESSURE CHRONIC ULCER OTH PRT UNSP FOOT W UNSP SEVERITY (5) Hematoma Code(s): T14.8 - OTHER INJURY OF UNSPECIFIED BODY REGION Assessment/Plan See above Recommend: 1) MRI to document and confirm level of OM ( will be helpful in if future surgery needed ) 2) PIC Line with 6 weeks IV Abx 3) Collagenase daily to Right foot ulcer 4) Follow up in Wound Center upon D/C 5) Will follow 6) Aspirated 1st Interspace right foot ( blood only came out ) Sent for C&S 7) No Surgical intervention at this time
[2016-10-30] MEDS: PIPERACILLIN/TAZOB 3.375 GM 50 ML IVPB SCH ×2 (02:45→09:19)
[2016-10-30] MEDS: INSULIN SLIDING SCALE (NOVOLOG) 1 VIAL SQ SCH ×4 (06:15→21:54)
[2016-10-30] MEDS: glyBURIDE 5 MG TABLET (UD) PO SCH (06:15)
[2016-10-30 08:58] LABS: CALCIUM 8.8 mg/dL (8.5-10.1); CREATININE 0.7 mg/dL (0.7-1.3)
[2016-10-30 09:00] LABS: BASOPHIL 0.3 % (0-2.0); EOSINOPHIL 1.5 % (0-4.5); MCH 28.8 pg (25.7-33.7); MCHC 33.3 g/dl (32.0-35.9); MEAN CELL VOLUME 86.3 fl (80-96); MEAN PLT VOLUME 7.8 fl (7.5-11.1); NEUTROPHILS 61.8 % (42.8-82.8); PLATELET COUNT 439 K/MM3 (134-434); RDW 12.8 % (11.9-15.9); WHITE BLOOD COUNT 7.8 K/mm3 (4.0-10.0)
[2016-10-30] MEDS: PANTOPRAZOLE 40 MG TABLET (FP) PO SCH (09:19)
[2016-10-30] MEDS: ASPIRIN COATED 81 MG TABLET.EC PO SCH (09:19)
[2016-10-30] MEDS: COLLAGENASE CLOSTRIDIUM HIST. 30 GRAMS TUBE TP SCH (09:19)
--- NOTE | 2016-10-30 16:23 | PN ---
Progress Note, Physician History of Present Illness: No c/o foot pain No fever/ chills Tolerating antibiotics MRI findings noted - Current Medication List Current Medications: Active Medications Aspirin (Ecotrin -) 81 mg PO DAILY [facility] Last Admin: 10/30/16 09:19 Dose: 81 mg Collagenase (Santyl -) 1 applic TP DAILY [facility] Last Admin: 10/30/16 09:19 Dose: 1 applic Glyburide (Diabeta -) 5 mg PO DAILY@0700 [facility] Last Admin: 10/30/16 06:15 Dose: 5 mg IV Flush (Picc Line Flush) 8 ml IVPUSH PRN PRN PRN Reason: Protocol Sodium Chloride (1/2 Normal Saline) 1,000 mls @ 60 mls/hr IV ASDIR [facility] Last Admin: 10/28/16 20:30 Dose: 60 mls/hr Piperacillin Sod/Tazobactam Sod (Zosyn 3.375gm Ivpb (Pre-Docked)) 50 mls @ 100 mls/hr IVPB Q8H-IV YESY PRN Reason: Protocol Last Admin: 10/30/16 09:19 Dose: 100 mls/hr Insulin Aspart (Novolog Vial Sliding Scale -) 1 vial SQ ACHS YESY PRN Reason: Protocol Last Admin: 10/30/16 12:20 Dose: 2 unit Invokana 300 Mg Tab (- Patient Own Med) 1 each PO DAILY [facility] Pantoprazole Sodium (Protonix -) 40 mg PO DAILY [facility] Last Admin: 10/30/16 09:19 Dose: 40 mg - Objective Vital Signs: Vital Signs Temperature 98.5 F 10/30/16 14:00 Pulse Rate 84 10/30/16 14:00 Respiratory Rate 20 10/30/16 10:00 Blood Pressure 133/81 10/30/16 14:00 O2 Sat by Pulse Oximetry (%) 96 10/28/16 21:00 Constitutional: Yes: No Distress Eyes: Yes: Conjunctiva Clear Cardiovascular: Yes: Regular Rate and Rhythm, S1, S2 Respiratory: Yes: CTA Bilaterally Gastrointestinal: Yes: Normal Bowel Sounds, Soft. No: Tenderness Extremities: Yes: Other (marked decrease in swelling and erythema of R foot and LE no drainage from ulceration) Labs: CBC, BMP 10/30/16 07:50 10/30/16 07:50 INR, PTT INR 1.25 (0.82-1.09) H 10/26/16 16:00 Assessment/Plan Infected R foot ulcer/ cellulitis Possible underlying abscess/ osteomyelitis Diabetes mellitus Substitute ceftriaxone 2gm IVPB q24h PICC am for outpatient antibiotic therapy
[2016-10-30] MEDS ORDERED: CEFTRIAXONE 2 GM in DEXTROSE 5%-WATER - 100 ML IVPB SCH (16:30)
[2016-10-30] MEDS: cefTRIAXone 2 GM/100 ML BAG (PRE-DOCKED) IVPB SCH (16:43)
[2016-10-30] MEDS ORDERED: INSULIN (NOVOLOG) ASPART 100 UNITS/ML 10ML VIAL ONE ×2 (21:39→21:40)
[2016-10-30] MEDS: SODIUM CHLORIDE 0.45% 1,000 ML IV SCH (21:54)
[2016-10-31] MEDS: INSULIN SLIDING SCALE (NOVOLOG) 1 VIAL SQ SCH ×2 (06:04→11:35)
[2016-10-31] MEDS: glyBURIDE 5 MG TABLET (UD) PO SCH (06:05)
--- NOTE | 2016-10-31 09:40 | PN ---
Progress Note, Physician History of Present Illness: OOB in chair No c/o foot pain Afebrile Tolerating antibiotics - Current Medication List Current Medications: Active Medications Aspirin (Ecotrin -) 81 mg PO DAILY [facility] Last Admin: 10/30/16 09:19 Dose: 81 mg Ceftriaxone Sodium (Rocephin 2gm Ivpb (Pre-Docked)) 2 gm IVPB DAILY [facility] Last Admin: 10/30/16 16:43 Dose: 2 gm Collagenase (Santyl -) 1 applic TP DAILY [facility] Last Admin: 10/30/16 09:19 Dose: 1 applic Glyburide (Diabeta -) 5 mg PO DAILY@0700 [facility] Last Admin: 10/31/16 06:05 Dose: 5 mg IV Flush (Picc Line Flush) 8 ml IVPUSH PRN PRN PRN Reason: Protocol Sodium Chloride (1/2 Normal Saline) 1,000 mls @ 60 mls/hr IV ASDIR [facility] Last Admin: 10/30/16 21:54 Dose: 60 mls/hr Insulin Aspart (Novolog Vial Sliding Scale -) 1 vial SQ ACHS [facility] PRN Reason: Protocol Last Admin: 10/31/16 06:04 Dose: 2 unit Invokana 300 Mg Tab (- Patient Own Med) 1 each PO DAILY [facility] Pantoprazole Sodium (Protonix -) 40 mg PO DAILY [facility] Last Admin: 10/30/16 09:19 Dose: 40 mg - Objective Vital Signs: Vital Signs Temperature 98.4 F 10/31/16 06:00 Pulse Rate 84 10/31/16 06:00 Respiratory Rate 20 10/31/16 06:00 Blood Pressure 116/80 10/31/16 06:00 O2 Sat by Pulse Oximetry (%) 96 10/30/16 21:00 Constitutional: Yes: No Distress Eyes: Yes: Conjunctiva Clear Cardiovascular: Yes: Regular Rate and Rhythm, S1, S2 Respiratory: Yes: CTA Bilaterally Gastrointestinal: Yes: Normal Bowel Sounds, Soft. No: Tenderness Extremities: Yes: Other (decreased foot swelling; erythema resolved no drainage from ulcer) Labs: CBC, BMP 10/30/16 07:50 10/30/16 07:50 INR, PTT INR 1.25 (0.82-1.09) H 10/26/16 16:00 Assessment/Plan Infected R foot ulcer/ cellulitis/ osteomyelitis Diabetes mellitus Substitute ceftriaxone 2gm IVPB q24h PICC am for outpatient antibiotic therapy
[2016-10-31] MEDS: PANTOPRAZOLE 40 MG TABLET (FP) PO SCH (10:00)
[2016-10-31] MEDS: cefTRIAXone 2 GM/100 ML BAG (PRE-DOCKED) IVPB SCH (10:00)
[2016-10-31] MEDS: COLLAGENASE CLOSTRIDIUM HIST. 30 GRAMS TUBE TP SCH (10:40)
[2016-10-31] MEDS: SODIUM CHLORIDE 0.45% 1,000 ML IV SCH (11:36)
[2016-10-31] MEDS: ASPIRIN COATED 81 MG TABLET.EC PO SCH (12:06)
[2016-10-31 14:56] VITALS: BP 114/94; PULSE 91; TEMP 98.1
--- NOTE | 2016-10-31 15:04 | PN ---
Progress Note, Physician - Current Medication List Current Medications: Active Medications Aspirin (Ecotrin -) 81 mg PO DAILY [facility] Last Admin: 10/31/16 12:06 Dose: 81 mg Ceftriaxone Sodium (Rocephin 2gm Ivpb (Pre-Docked)) 2 gm IVPB DAILY [facility] Last Admin: 10/31/16 10:00 Dose: 2 gm Collagenase (Santyl -) 1 applic TP DAILY [facility] Last Admin: 10/31/16 10:40 Dose: 1 applic Glyburide (Diabeta -) 5 mg PO DAILY@0700 [facility] Last Admin: 10/31/16 06:05 Dose: 5 mg IV Flush (Picc Line Flush) 8 ml IVPUSH PRN PRN PRN Reason: Protocol Sodium Chloride (1/2 Normal Saline) 1,000 mls @ 60 mls/hr IV ASDIR [facility] Last Admin: 10/31/16 11:36 Dose: 60 mls/hr Insulin Aspart (Novolog Vial Sliding Scale -) 1 vial SQ ACHS YESY PRN Reason: Protocol Last Admin: 10/31/16 11:35 Dose: 4 unit Invokana 300 Mg Tab (- Patient Own Med) 1 each PO DAILY [facility] Pantoprazole Sodium (Protonix -) 40 mg PO DAILY [facility] Last Admin: 10/31/16 10:00 Dose: 40 mg - Objective Vital Signs: Vital Signs Temperature 98.1 F 10/31/16 14:00 Pulse Rate 91 H 10/31/16 14:00 Respiratory Rate 20 10/31/16 14:00 Blood Pressure 114/94 10/31/16 14:00 O2 Sat by Pulse Oximetry (%) 98 10/31/16 09:00 Labs: CBC, BMP 10/30/16 07:50 10/30/16 07:50 INR, PTT INR 1.25 (0.82-1.09) H 10/26/16 16:00 Assessment/Plan pic line in vss plan rocephin 2 grm q 24 hrs at home vns
== END 2016-10-31 17:04 | disposition home or self-care (01) | DRG 638 ==
LOC: JER 15:03 → JERBED 18:16 → J6S 20:23
PROVIDERS: ADMIT Family Medicine; ATTEND Family Medicine
PROC: 0H9MXZX Drainage of Right Foot Skin, External Approach, Diagnostic (ICD-10-PCS; principal; 2016-10-29)
PROC: 02HV33Z Insertion of Infusion Device into Superior Vena Cava, Percutaneous Approach (ICD-10-PCS; 2016-10-31)
PROC: B5181ZA Fluoroscopy of Superior Vena Cava using Low Osmolar Contrast, Guidance (ICD-10-PCS; 2016-10-31)
DX: E11.69 Type 2 diabetes mellitus with other specified complication (principal); M86.171 Other acute osteomyelitis, right ankle and foot; E11.621 Type 2 diabetes mellitus with foot ulcer; E11.40 Type 2 diabetes mellitus with diabetic neuropathy, unspecified; L97.514 Non-pressure chronic ulcer of other part of right foot with necrosis of bone; A49.01 Methicillin susceptible Staphylococcus aureus infection, unspecified site; Z79.4 Long term (current) use of insulin; Z89.421 Acquired absence of other right toe(s)
CPT/HCPCS: 36415; 36569; 71020-TC; 73630-TC-RT; 73719; 77001-TC; 78306-TC; 80048; 80053; 81003; 81015; 82550; 82803; 83036; 83605; 84484; 85025; 85027; 85610; 85651; 85730; 86140; 86850; 86900; 86901; 87040; 87070; 87086; 87186; 87205; 90670; 93005; 93010; 99284-25; A9503; A9576; C1751; G0463-25; G0480

== ENCOUNTER 2017-01-23 03:31 | Inpatient (IN) | payer BC, OTHER ==
[2017-01-23 03:56] VITALS: BMI 29.2
--- NOTE | 2017-01-23 04:19 | PDOC ---
History of Present Illness - General History Source: Patient Exam Limitations: No Limitations - History of Present Illness Initial Comments: 01/23/17 04:25 Patient is a 46 year old male with no significant past medical history of DM and osteomyelitis who presents to the ED with R foot ulcer. Patient states that he was in [facility] 10/2016 and was admitted for a right foot ulcer. Patient states that he was discharged home with a PiCC line and was home for 2 months. He notes that he now developed another plantar ulcer on the same foot that is painful, actively draining and is foul smelling. Patient states that he is unable to keep anything down for the past 3 days. PSH: right foot 3rd toe amputation PCP - Dr. Reggie Akins <Darshana Martinez - Last Filed: 01/23/17 05:30> <Marcelle Stout - Last Filed: 01/23/17 06:15> - General Chief Complaint: Wound Stated Complaint: FOOT WOUND Time Seen by Provider: 01/23/17 03:56 Past History <Darshana Martinez - Last Filed: 01/23/17 05:30> - Past Medical History Diabetes: Yes HTN: Yes - Immunization History Immunization Up to Date: No - Psycho/Social/Smoking Cessation Hx Suicidal Ideation: No Smoking History: Never smoked Have you smoked in the past 12 months: No Cigars Per Day: 1 Hx Alcohol Use: No Drug/Substance Use Hx: No Substance Use Type: None Hx Substance Use Treatment: No <Marcelle Stout - Last Filed: 01/23/17 06:15> - Past Medical History Allergies/Adverse Reactions: Allergies Allergy/AdvReac Type Severity Reaction Status Date / Time daptomycin [From Cubicin] Allergy Severe Verified 01/23/17 05:27 Home Medications: Ambulatory Orders Insulin Aspart [Novolog] 10 - 20 units [facility] ASDIR PRN 02/19/16 Mupirocin Ointment [Bactroban 2% Ointment -] 1 applic TP BID #30 applic Aspirin Coated [Ecotrin -] 81 mg PO DAILY #0 tablet.ec 10/31/16 Collagenase Clostridium Hist. [Santyl -] 1 applic TP DAILY #0 tube 10/31/16 Insulin Sliding Scale [Novolog Vial Sliding Scale -] 1 vial SQ ACHS #0 units Losartan Potassium [Cozaar] 25 mg PO DAILY #0 tablet 10/31/16 Canagliflozin/Metformin HCl [Invokamet 150-1,000 mg Tablet] 1 tab PO BID Review of Systems - Review of Systems Able to Perform ROS?: Yes Comments:: 01/23/17 04:25 GENERAL/CONSTITUTIONAL: No fever or chills. No weakness. HEAD, EYES, EARS, NOSE AND THROAT: No change in vision. No ear pain or discharge. No sore throat. CARDIOVASCULAR: No chest pain or shortness of breath. RESPIRATORY: No cough, wheezing, or hemoptysis. GASTROINTESTINAL: No nausea, vomiting, diarrhea or constipation. GENITOURINARY: No dysuria, frequency, or change in urination. MUSCULOSKELETAL: No joint or muscle swelling or pain. No neck or back pain. SKIN: (+)ulcer of the right foot. No rash NEUROLOGIC: No headache, vertigo, loss of consciousness, or change in strength/ sensation. ENDOCRINE: No increased thirst. No abnormal weight change. HEMATOLOGIC/LYMPHATIC: No anemia, easy bleeding, or history of blood clots. ALLERGIC/IMMUNOLOGIC: No hives or skin allergy. <Darshana Martinez - Last Filed: 01/23/17 05:30> *Physical Exam - Vital Signs Last Vital Signs Temp Pulse Resp BP Pulse Ox 97.8 F 109 H 18 147/94 100 01/23/17 03:53 01/23/17 03:53 01/23/17 03:53 01/23/17 03:53 01/23/17 03:53 - Physical Exam Comments: 01/23/17 04:26 GENERAL: Awake, alert, and fully oriented, in no acute distress HEAD: No signs of trauma EYES: PERRLA, EOMI, sclera anicteric, conjunctiva clear ENT: Auricles normal inspection, hearing grossly normal, nares patent, oropharynx clear without exudates. Moist mucosa NECK: Normal ROM, supple, no lymphadenopathy, JVD, or masses LUNGS: Breath sounds equal, clear to auscultation bilaterally. No wheezes, and no crackles HEART: Regular rate and rhythm, normal S1 and S2, no murmurs, rubs or gallops ABDOMEN: Soft, nontender, normoactive bowel sounds. No guarding, no rebound. No masses EXTREMITIES: (+)bilateral pedal pulses present. Normal range of motion, no edema. No clubbing or cyanosis. No cords, erythema, or tenderness NEUROLOGICAL: Cranial nerves II through XII grossly intact. Normal speech, normal gait SKIN: (+)plantar ulcer at lateral aspect of the right foot, foul smelling and actively draining. Warm, Dry, normal turgor, no rashes noted. <Darshana Martinez - Last Filed: 01/23/17 05:30> - Vital Signs Last Vital Signs Temp Pulse Resp BP Pulse Ox 97.8 F 109 H 18 147/94 100 01/23/17 03:53 01/23/17 03:53 01/23/17 03:53 01/23/17 03:53 01/23/17 03:53 <Marcelle Stout - Last Filed: 01/23/17 06:15> ED Treatment Course - LABORATORY CBC & Chemistry Diagram: 01/23/17 04:50 01/23/17 04:50 <Darshana Martinez - Last Filed: 01/23/17 05:30> - LABORATORY CBC & Chemistry Diagram: 01/23/17 04:50 01/23/17 04:50 <Marcelle Stout - Last Filed: 01/23/17 06:15> Medical Decision Making - Medical Decision Making 01/23/17 05:20 Pt comes with diabetic foot ulcers that smell of pseudomonas. Pt states that they have been progressing x 3 days, but he comes in now, as he had a day off. 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 Seems pt had osteomyelitis. His PMD is Dr. Reggie Akins. Pt also has a foot Dr who he follows with. WBC 23. Foot dunked in betadine. 01/23/17 06:15 Dr. Akins is aware of the patient <Marcelle Stout - Last Filed: 01/23/17 06:15> *DC/Admit/Observation/Transfer <Darshana Martinez - Last Filed: 01/23/17 05:30> - Discharge Dispostion Admit: Yes <Marcelle Stout - Last Filed: 01/23/17 06:15> Diagnosis at time of Disposition: Type 2 diabetes mellitus with foot ulcer, Wound infection, Cellulitis - Discharge Dispostion Condition at time of disposition: Poor - Referrals Referrals: Reggie Akins MD [Primary Care Provider] -
[2017-01-23] MEDS ORDERED: PIPERACILLIN/TAZOB 4.5 GM 4.5 GM in DEXTROSE 5%-WATER - 100 ML IVPB ONE (04:30)
[2017-01-23] MEDS ORDERED: VANCOMYCIN 1,000 MG in DEXTROSE 5%-WATER - 250 ML IVPB ONE (04:31)
[2017-01-23 05:21] LABS: MCH 27.2 pg (25.7-33.7); MEAN PLT VOLUME 8.9 fl (7.5-11.1); PLATELET COUNT 302 K/MM3 (134-434); RDW 14.2 % (11.9-15.9); WHITE BLOOD COUNT 23.2 K/mm3 (4.0-10.0)
[2017-01-23 05:29] LABS: ALBUMIN 3.7 g/dl (3.4-5.0); ALK PHOS 106 U/L (45-117); ANION GAP 18 (8-16); BILIRUBIN,TOTAL 1.3 mg/dL (0.2-1.0); CALCIUM 9.1 mg/dL (8.5-10.1); CO2 17 mmol/L (21-32); CREATININE 1.1 mg/dL (0.7-1.3); GLUCOSE,RANDOM 202 mg/dL (74-106); SGOT/AST 13 U/L (15-37); SGPT/ALT 16 U/L (12-78); TOT PROT 8.6 g/dl (6.4-8.2)
[2017-01-23 06:10] LABS: PLATELET ESTIMATE ADEQUATE (NORMAL)
--- NOTE | 2017-01-23 10:50 | PN ---
Teaching Attending Note Name of Resident: Jeyson Weller ATTENDING PHYSICIAN STATEMENT I saw and evaluated the patient. I reviewed the resident's note and discussed the case with the resident. I agree with the resident's findings and plan as documented. Fever and shaking chills at home SUBJECTIVE:Foot is swollen red dorsal surface OBJECTIVE: plantar ulcer probed to bone ASSESSMENT AND PLAN:Osteomyelitis recent treatment IV antibiotics Plan Vanco and zosyn pending c/s Blood cultures ESR CRP Surgical f/u re OR debridment Kate CAI Problem List - Problems (1) Type 2 diabetes mellitus with foot ulcer Code(s): E11.621 - TYPE 2 DIABETES MELLITUS WITH FOOT ULCER L97.509 - NON-PRESSURE CHRONIC ULCER OTH PRT UNSP FOOT W UNSP SEVERITY Qualifiers: (2) Osteomyelitis Code(s): M86.9 - OSTEOMYELITIS, UNSPECIFIED Qualifiers: Osteomyelitis location: foot Laterality: right
--- NOTE | 2017-01-23 10:51 | CONSULT ---
Consultation: REQUESTING PROVIDER: CONSULT REQUEST: We have been asked to medically evaluate this patient for (ID). HISTORY OF PRESENT ILLNESS: Patient is a 46 year old male with no significant past medical history of DM and osteomyelitis who presents to the ED with R foot ulcer. Patient states that he was in [facility] 10/2016 and was admitted for a right foot ulcer. Patient states that he was discharged home with a PiCC line, recieved ceftriaxone for around 6 week, finished it in beginning of december. He notes that he now developed another plantar ulcer on the same foot that is painful in begining of january, Patient sees a research biostatistician who did detriment and gave him levaquin. Ulcer siz kept on increasing and is now discharging a purulent material with foul smell. 3 days ago patient had fever, chills, nausea , vomiting so came to hospital. Patient has no pets occasional smoker non alcoholic doesn't walk bare foot. Doesn't remember if he hit some thing states he still have sensation in his legs states sugar in under control and has intentionally lost weight REVIEW OF SYSTEMS: CONSTITUTIONAL: Absent: fever, chills, diaphoresis, generalized weakness, malaise, loss of appetite, weight change HEENT: Absent: rhinorrhea, nasal congestion, throat pain, throat swelling, CARDIOVASCULAR: Absent: chest pain, syncope, palpitations, RESPIRATORY: Absent: cough, shortness of breath, GASTROINTESTINAL: Absent: abdominal pain, abdominal distension, nausea, vomiting, GENITOURINARY: Absent: dysuria, frequency, urgency, MUSCULOSKELETAL: ulcer with foul smelling discharge on planter aspect of right foot. PHYSICAL EXAMINATION Vital Signs - 24 hr 01/23/17 07:13 Temperature 98 F Pulse Rate [ 105 H Apical] Respiratory 18 Rate Blood Pressure 135/72 [Left Arm] O2 Sat by Pulse 99 Oximetry (%) GENERAL: Awake, alert, and fully oriented, in no acute distress. HEAD: Normal with no signs of trauma. EYES: Pupils equal, round and reactive to light, extraocular movements intact, sclera anicteric, conjunctiva clear. No lid lag. LUNGS: Breath sounds equal, clear to auscultation bilaterally. No wheezes, and no crackles. No accessory muscle use. HEART: s1s2 n ABDOMEN: Soft, nontender, not distended, normoactive bowel sounds, UPPER EXTREMITIES: 2+ pulses, warm, well-perfused. No cyanosis. LOWER EXTREMITIES: around 2.5 x 3 cm ulcer in plater aspect of left foot, foul smell discharge, probe goes in upto 2 cm hit bone warm to touch, dosal aspect erythematous and swollen, margin or ulcer white, floor of ulcer granulation tissue present. ASSESSMENT/PLAN: A osteomyelitis DM Plan continue with vanco/ zosyn get wound culture get blood culture get esr, crp Surgical f/u re OR debridment Visit type - Emergency Visit Emergency Visit: Yes ED Registration Date: 01/23/17 Care time: The patient presented to the Emergency Department on the above date and was hospitalized for further evaluation of their emergent condition. - New Patient This patient is new to me today: Yes Date on this admission: 01/23/17 - Critical Care Critical Care patient: No
[2017-01-23] MEDS: PIPERACILLIN/TAZOB 4.5 GM 100 ML IVPB SCH ×2 (11:56→17:05)
[2017-01-23] MEDS: ASPIRIN 81 MG CHEWABLE TABLETS PO SCH (11:56)
[2017-01-23] MEDS: SODIUM CHLORIDE 1,000 ML IV SCH (11:56)
[2017-01-23] MEDS ORDERED: ONDANSETRON 4 MG/2 ML VIAL IVPB PRN ×2 (12:37→12:39)
[2017-01-23] MEDS: METOPROLOL TARTRATE 25 MG TABLET (FP) PO SCH (13:37)
--- NOTE | 2017-01-23 14:01 | EKG ---
Test Reason : Blood Pressure : / mmHG Vent. Rate : 107 BPM Atrial Rate : 107 BPM P-R Int : 126 ms QRS Dur : 098 ms QT Int : 326 ms P-R-T Axes : 066 -06 044 degrees QTc Int : 435 ms SINUS TACHYCARDIA OTHERWISE NORMAL ECG WHEN COMPARED WITH ECG OF 26-OCT-2016 18:10, NO SIGNIFICANT CHANGE WAS FOUND Confirmed by RAMOS TORRES MD ([id number]) on 01/23/2017 2:01:15 PM Referred By: Confirmed By:RAMOS TORRES MD
[2017-01-23] MEDS: MUPIROCIN 2% TOPICAL OINTMENT 22 GM TUBE TP SCH (15:22)
[2017-01-23] MEDS: VANCOMYCIN 1,250 MG in DEXTROSE 5%-WATER - 250 ML IVPB SCH (15:23)
[2017-01-23] MEDS: COLLAGENASE CLOSTRIDIUM HIST. 30 GRAMS TUBE TP SCH (15:23)
--- NOTE | 2017-01-23 16:23 | HP ---
Admitting History and Physical - Admission Chief Complaint: ulcer under rt foot new. x 1 wk History of Present Illness: lt side of foot healing ulcer from last adnission 1 mth axtb at home History Source: Patient Limitations to Obtaining History: No Limitations - Past Medical History Infectious Disease: Yes: Other (rt toe great) - Past Surgical History Past Surgical History: Yes: Amputation (rt mid toe and rt nerve realease w rt sole bone sx) - Smoking History Smoking history: Never smoked Have you smoked in the past 12 months: No - Alcohol/Substance Use Hx Alcohol Use: No - Social History ADL: Independent History of Recent Travel: No Home Medications - Allergies Allergies/Adverse Reactions: Allergies Allergy/AdvReac Type Severity Reaction Status Date / Time daptomycin [From Cubicin] Allergy Severe Verified 01/23/17 05:27 - Home Medications Home Medications: Ambulatory Orders Insulin Aspart [Novolog] 10 - 20 units SCJ ASDIR PRN 02/19/16 Mupirocin Ointment [Bactroban 2% Ointment -] 1 applic TP BID #30 applic Aspirin Coated [Ecotrin -] 81 mg PO DAILY #0 tablet.ec 10/31/16 Collagenase Clostridium Hist. [Santyl -] 1 applic TP DAILY #0 tube 10/31/16 Insulin Sliding Scale [Novolog Vial Sliding Scale -] 1 vial SQ ACHS #0 units Losartan Potassium [Cozaar] 25 mg PO DAILY #0 tablet 10/31/16 Canagliflozin/Metformin HCl [Invokamet 150-1,000 mg Tablet] 1 tab PO BID Family Disease History - Family Disease History Family History: Unremarkable Review of Systems - Review of Systems Musculoskeletal: reports: Other (rt foot sole ulcer) Endocrine: reports: Other (nausea) Psychiatric: reports: No Symptoms Physical Examination Vital Signs: Vital Signs Temperature 98 F 01/23/17 07:13 Pulse Rate 105 H 01/23/17 07:13 Respiratory Rate 18 01/23/17 07:13 Blood Pressure 135/72 01/23/17 07:13 O2 Sat by Pulse Oximetry (%) 99 01/23/17 07:13 Constitutional: Yes: Well Nourished Eyes: Yes: WNL HENT: Yes: WNL Neck: Yes: WNL Cardiovascular: Yes: WNL Respiratory: Yes: WNL Gastrointestinal: Yes: WNL ...Rectal Exam: Yes: Deferred Renal/: Yes: WNL Breast(s): Yes: WNL Musculoskeletal: Yes: Other (rt foot ulcer stage 3) Extremities: Yes: Other (lower exts sligth neurapathy) Peripheral Pulses WNL: Yes Integumentary: Yes: Venous Stasis Changes Wound/Incision: Yes: Dressing Dry and Intact Neurological: Yes: WNL ...Motor Strength: WNL Psychiatric: Yes: WNL Assessment/Plan to be seen by all consultants cont axt as is nuclear scan if needed f/u labs in am peek and trough by id
[2017-01-23] MEDS ORDERED: SODIUM POLYSTYRENE SULFONATE 15 GM/60 ML BOTTLE PO ONE (16:24)
[2017-01-24] MEDS: PIPERACILLIN/TAZOB 4.5 GM 100 ML IVPB SCH ×3 (02:00→21:26)
[2017-01-24] MEDS: VANCOMYCIN 1,250 MG in DEXTROSE 5%-WATER - 250 ML IVPB SCH ×2 (04:42→14:55)
[2017-01-24] MEDS: SODIUM CHLORIDE 1,000 ML IV SCH ×2 (04:42→21:26)
[2017-01-24] MEDS: INSULIN SLIDING SCALE (NOVOLOG) 1 VIAL SQ SCH ×2 (06:38→21:38)
[2017-01-24] MEDS ORDERED: glyBURIDE 2.5 MG TABLET (FP) PO SCH (07:00)
[2017-01-24 08:29] LABS: MCH 27.7 pg (25.7-33.7); MCHC 32.6 g/dl (32.0-35.9); MEAN CELL VOLUME 84.8 fl (80-96); MEAN PLT VOLUME 8.8 fl (7.5-11.1); PLATELET COUNT 257 K/MM3 (134-434); RDW 13.9 % (11.9-15.9); WHITE BLOOD COUNT 14.3 K/mm3 (4.0-10.0)
--- NOTE | 2017-01-24 08:47 | CONSULT ---
Consult Consult Specialty:: Podiatry Reason for Consultation:: Red hot swollen Right foot - History of Present Illness Chief Complaint: I have pain in my Right foot History of Present Illness: 3-4 days ago his right foot became red hot swollen and tender and he became feverish. He also had a pin in his groin with a golf ball type thing. He drove himself to [facility], was admitted and started on IV Abx. He feels better now - History Source History Provided By: Patient - Past Medical History Infectious Disease: Yes: Other (rt toe great) - Past Surgical History Past Surgical History: Yes: Amputation (rt mid toe and rt nerve realease w rt sole bone sx) - Alcohol/Substance Use Hx Alcohol Use: No - Smoking History Smoking history: Never smoked Have you smoked in the past 12 months: No - Social History ADL: Independent History of Recent Travel: No Home Medications - Allergies Allergies/Adverse Reactions: Allergies Allergy/AdvReac Type Severity Reaction Status Date / Time daptomycin [From Cubicin] Allergy Severe Verified 01/23/17 05:27 - Home Medications Home Medications: Ambulatory Orders Insulin Aspart [Novolog] 10 - 20 units SCJ ASDIR PRN 02/19/16 Mupirocin Ointment [Bactroban 2% Ointment -] 1 applic TP BID #30 applic Aspirin Coated [Ecotrin -] 81 mg PO DAILY #0 tablet.ec 10/31/16 Collagenase Clostridium Hist. [Santyl -] 1 applic TP DAILY #0 tube 10/31/16 Insulin Sliding Scale [Novolog Vial Sliding Scale -] 1 vial SQ ACHS #0 units Losartan Potassium [Cozaar] 25 mg PO DAILY #0 tablet 10/31/16 Canagliflozin/Metformin HCl [Invokamet 150-1,000 mg Tablet] 1 tab PO BID Review of Systems - Review of Systems Constitutional: reports: No Symptoms Eyes: reports: No Symptoms HENT: reports: No Symptoms Neck: reports: No Symptoms Cardiovascular: reports: No Symptoms Respiratory: reports: No Symptoms Gastrointestinal: reports: No Symptoms Genitourinary: reports: No Symptoms Musculoskeletal: reports: No Symptoms Integumentary: reports: Wound (Right foot: Full thickness ulcer) Neurological: reports: No Symptoms Endocrine: reports: No Symptoms Hematology/Lymphatic: reports: No Symptoms Psychiatric: reports: No Symptoms Physical Exam Vital Signs: Vital Signs Temperature 98.5 F 01/24/17 07:07 Pulse Rate 96 H 01/24/17 07:07 Respiratory Rate 20 01/24/17 07:07 Blood Pressure 113/74 01/24/17 07:07 O2 Sat by Pulse Oximetry (%) 97 01/23/17 21:00 Constitutional: Yes: Well Nourished, No Distress, Calm Eyes: Yes: WNL HENT: Yes: Atraumatic, Normocephalic Neck: Yes: Supple Cardiovascular: Yes: WNL Respiratory: Yes: Regular Gastrointestinal: Yes: WNL ...Rectal Exam: Yes: Deferred Renal/: Yes: WNL (3rd toe right foot) Musculoskeletal: Yes: WNL Extremities: Yes: Amputation (toes) Edema: Yes Peripheral Pulses WNL: Yes Integumentary: Yes: Pressure Ulcer (Sub met 4&5 and DME all right foot) Wound/Incision: Yes: Draining (Dorsal lateral right foot), Reddened (Dorsal lateral right foot) Neurological: Yes: Alert, Oriented, Cran Nerves II-XII Intact, Paresthesia ...Motor Strength: WNL Psychiatric: Yes: WNL, Alert, Oriented Labs: CBC, BMP 01/24/17 06:30 Imaging - Results X-ray: Report Reviewed, Image Reviewed (+ Chnages consistant with Osteomyelitis at 1st MP joint which is not involved today) Problem List - Problems (1) Wound infection Code(s): T14.8 - OTHER INJURY OF UNSPECIFIED BODY REGION L08.9 - LOCAL INFECTION OF THE SKIN AND SUBCUTANEOUS TISSUE, UNSP (2) Essential (primary) hypertension Code(s): I10 - ESSENTIAL (PRIMARY) HYPERTENSION (3) Osteomyelitis due to secondary diabetes Code(s): E13.69 - OTH DIABETES MELLITUS WITH OTHER SPECIFIED COMPLICATION M86.9 - OSTEOMYELITIS, UNSPECIFIED Assessment/Plan 1) H&P reviewed no changes 2) D/W pateitn need for surgery I&D with wash out 3)
--- NOTE | 2017-01-24 08:48 | CONSULT ---
Consult - Past Medical History Infectious Disease: Yes: Other (rt toe great) - Past Surgical History Past Surgical History: Yes: Amputation (rt mid toe and rt nerve realease w rt sole bone sx) - Alcohol/Substance Use Hx Alcohol Use: No - Smoking History Smoking history: Never smoked Have you smoked in the past 12 months: No - Social History ADL: Independent History of Recent Travel: No Home Medications - Allergies Allergies/Adverse Reactions: Allergies Allergy/AdvReac Type Severity Reaction Status Date / Time daptomycin [From Cubicin] Allergy Severe Verified 01/23/17 05:27 - Home Medications Home Medications: Ambulatory Orders Insulin Aspart [Novolog] 10 - 20 units SCJ ASDIR PRN 02/19/16 Mupirocin Ointment [Bactroban 2% Ointment -] 1 applic TP BID #30 applic Aspirin Coated [Ecotrin -] 81 mg PO DAILY #0 tablet.ec 10/31/16 Collagenase Clostridium Hist. [Santyl -] 1 applic TP DAILY #0 tube 10/31/16 Insulin Sliding Scale [Novolog Vial Sliding Scale -] 1 vial SQ ACHS #0 units Losartan Potassium [Cozaar] 25 mg PO DAILY #0 tablet 10/31/16 Canagliflozin/Metformin HCl [Invokamet 150-1,000 mg Tablet] 1 tab PO BID Physical Exam Vital Signs: Vital Signs Temperature 98.5 F 01/24/17 07:07 Pulse Rate 96 H 01/24/17 07:07 Respiratory Rate 20 01/24/17 07:07 Blood Pressure 113/74 01/24/17 07:07 O2 Sat by Pulse Oximetry (%) 97 01/23/17 21:00 Labs: CBC, BMP 01/24/17 06:30 Assessment/Plan VAscular surgery Patient is a 46 year old male with no significant past medical history of DM and osteomyelitis who presents to the ED with R foot ulcer. Patient states that he was in [facility] 10/2016 and was admitted for a right foot ulcer. Patient states that he was discharged home with a PiCC line and was home for 2 months. He notes that he now developed another plantar ulcer on the same foot that is painful, actively draining and is foul smelling. Patient states that he is unable to keep anything down for the past 3 days. PSH: right foot 3rd toe amputation PE Head - NC/AT Lung - CTA Heart - RRR abd - soft,nt,nd ext - right foot diabetic foot ulcer Draining pus. induration on forefoot. Palpable DP pulse. A/P Dr. Vale from podiatry to see pt and drain abscess. Cleared from a vascular standpoint for procedure. Cont IV antibiotics. Leland Culp DO
[2017-01-24 08:52] LABS: ALK PHOS 87 U/L (45-117); ANION GAP 18 (8-16); BILIRUBIN,TOTAL 1.2 mg/dL (0.2-1.0); CALCIUM 8.6 mg/dL (8.5-10.1); CO2 17 mmol/L (21-32); COCKROFT - GAULT 218.58; CREATININE 0.7 mg/dL (0.7-1.3); GLUCOSE,RANDOM 149 mg/dL (74-106); SGOT/AST 7 U/L (15-37); SGPT/ALT 12 U/L (12-78); TOT PROT 7.4 g/dl (6.4-8.2)
[2017-01-24] MEDS ORDERED: PANTOPRAZOLE SODIUM 40 MG/100 ML PRE-DOCKED IVPB SCH (10:00)
--- NOTE | 2017-01-24 10:18 | PN ---
Progress Note, Physician - Current Medication List Current Medications: Active Medications Aspirin (Asa -) 81 mg PO DAILY [facility] Last Admin: 01/23/17 11:56 Dose: 81 mg Collagenase (Santyl -) 1 applic TP DAILY [facility] Last Admin: 01/23/17 15:23 Dose: 1 appful Glyburide (Diabeta -) 2.5 mg PO ACBK [facility] Last Admin: 01/24/17 06:38 Dose: 2.5 mg Glyburide (Diabeta -) 5 mg PO DAILY@0700 [facility] Vancomycin HCl 1,250 mg/ (Dextrose) 250 mls @ 166.667 mls/hr IVPB BID@0430, 1430 [facility] PRN Reason: Protocol Last Admin: 01/24/17 04:42 Dose: 166.667 mls/hr Piperacillin Sod/Tazobactam Sod (Zosyn 4.5gm Ivpb (Pre-Docked)) 100 mls @ 200 mls/hr IVPB Q8H-IV YESY PRN Reason: Protocol Last Admin: 01/24/17 02:00 Dose: 200 mls/hr Sodium Chloride (Normal Saline -) 1,000 mls @ 75 mls/hr IV ASDIR [facility] Last Admin: 01/24/17 04:42 Dose: 75 mls/hr Insulin Aspart (Novolog Vial Sliding Scale -) 1 vial SQ BIDAC [facility] PRN Reason: Protocol Last Admin: 01/24/17 06:38 Dose: Not Given Metoprolol Tartrate (Lopressor -) 25 mg PO DAILY [facility] Last Admin: 01/23/17 13:37 Dose: 25 mg Mupirocin (Bactroban 2% Ointment -) 1 applic TP DAILY [facility] Last Admin: 01/23/17 15:22 Dose: 1 appful Ondansetron HCl (Zofran Injection) 4 mg IVPB Q4H PRN PRN Reason: NAUSEA Last Admin: 01/23/17 12:52 Dose: 4 mg Ondansetron HCl (Zofran Injection) 4 mg IVPB Q6H PRN PRN Reason: NAUSEA Pantoprazole Sodium (Protonix 40mg Ivpb (Pre-Docked)) 40 mg IVPB DAILY [facility] - Objective Vital Signs: Vital Signs Temperature 98.5 F 01/24/17 07:07 Pulse Rate 96 H 01/24/17 07:07 Respiratory Rate 20 01/24/17 07:07 Blood Pressure 113/74 01/24/17 07:07 O2 Sat by Pulse Oximetry (%) 97 01/23/17 21:00 Labs: CBC, BMP 01/24/17 06:30 01/24/17 06:30 Assessment/Plan pt feeling good vss wbc beterre sx pnd rt foot keep sugers down up glyberide to 5 mg
[2017-01-24] MEDS: ASPIRIN 81 MG CHEWABLE TABLETS PO SCH (10:26)
[2017-01-24] MEDS: METOPROLOL TARTRATE 25 MG TABLET (FP) PO SCH (10:26)
[2017-01-24] MEDS: COLLAGENASE CLOSTRIDIUM HIST. 30 GRAMS TUBE TP SCH (10:27)
[2017-01-24] MEDS: MUPIROCIN 2% TOPICAL OINTMENT 22 GM TUBE TP SCH (10:27)
[2017-01-24] MEDS ORDERED: D5-1/2NS+40 MEQ KCL - 1,000 ML IV SCH ×2 (12:45→17:24)
--- NOTE | 2017-01-24 12:46 | PN ---
Physical Exam: SUBJECTIVE: Patient seen and examined denies fever chills discharge coming from ulcer OBJECTIVE: Vital Signs Period Temp Pulse Resp BP Sys/Morfin Pulse Ox Last 24 Hr 97.9 F-99.3 F 96-106 18-20 113-140/74-89 97 GENERAL: Awake, alert, and fully oriented, in no acute distress. HEAD: Normal with no signs of trauma. EYES: Pupils equal, round and reactive to light, extraocular movements intact, sclera anicteric, conjunctiva clear. No lid lag. LUNGS: Breath sounds equal, clear to auscultation bilaterally. No wheezes, and no crackles. No accessory muscle use. HEART: s1s2 n ABDOMEN: Soft, nontender, not distended, normoactive bowel sounds, UPPER EXTREMITIES: 2+ pulses, warm, well-perfused. No cyanosis. LOWER EXTREMITIES: around 2.5 x 3 cm ulcer in plater aspect of left foot, foul smell discharge, probe goes in upto 2 cm hit bone,warm to touch, dosal aspect erythematous and swollen, margin or ulcer white, floor of ulcer granulation tissue present. Laboratory Results - last 24 hr 01/23/17 01/23/17 01/24/17 12:17 17:32 06:30 WBC 14.3 H D RBC 4.70 Hgb 13.0 Hct 39.9 MCV 84.8 MCHC 32.6 RDW 13.9 Plt Count 257 MPV 8.8 Sodium Potassium Chloride Carbon Dioxide Anion Gap BUN Creatinine Creat Clearance w eGFR POC Glucometer 173 195 Random Glucose Calcium Total Bilirubin AST ALT Alkaline Phosphatase Total Protein Albumin 01/24/17 01/24/17 06:30 11:17 WBC RBC Hgb Hct MCV MCHC RDW Plt Count MPV Sodium 135 L Potassium 3.9 D Chloride 100 Carbon Dioxide 17 L Anion Gap 18 H BUN 15 D Creatinine 0.7 D Creat Clearance w eGFR > 60 POC Glucometer 140 Random Glucose 149 H D Calcium 8.6 Total Bilirubin 1.2 H AST 7 L D ALT 12 D Alkaline Phosphatase 87 Total Protein 7.4 Albumin 3.0 L Active Medications Generic Name Dose Route Start Last Admin Trade Name Freq PRN Reason Stop Dose Admin Aspirin 81 mg 01/23/17 11:45 01/24/17 10:26 Asa - PO Not Given DAILY YESY Collagenase 1 applic 01/23/17 12:30 01/24/17 10:27 Santyl - TP 1 appful DAILY YESY Administration Vancomycin HCl 1,250 mg/ 250 mls @ 166.667 mls/hr 01/23/17 14:30 01/24/17 04:42 Dextrose IVPB 166.667 mls/hr BID@0430,1430 YESY Administration Protocol Piperacillin Sod/Tazobactam Sod 100 mls @ 200 mls/hr 01/23/17 11:45 01/24/17 10 :24 Zosyn 4.5gm Ivpb (Pre-Docked) IVPB 200 mls/hr Q8H-IV YESY Administration Protocol Dextrose/Sodium Chloride 1,000 mls @ 75 mls/hr 01/24/17 12:45 D5-1/2ns+40 Meq Kcl - IV ASDIR YESY Insulin Aspart 1 vial 01/24/17 07:00 01/24/17 06:38 Novolog Vial Sliding Scale - SQ Not Given BIDAC [facility] Protocol Metoprolol Tartrate 25 mg 01/23/17 12:45 01/24/17 10:26 Lopressor - PO 25 mg DAILY YESY Administration Mupirocin 1 applic 01/23/17 12:30 01/24/17 10:27 Bactroban 2% Ointment - TP 1 appful DAILY YESY Administration Ondansetron HCl 4 mg 01/23/17 12:37 01/23/17 12:52 Zofran Injection IVPB 4 mg Q4H PRN Administration NAUSEA Ondansetron HCl 4 mg 01/23/17 12:39 Zofran Injection IVPB Q6H PRN NAUSEA Pantoprazole Sodium 40 mg 01/24/17 10:00 01/24/17 10:22 Protonix 40mg Ivpb (Pre-Docked) IVPB 40 mg DAILY YESY Administration Microbiology 01/23/17 11:25 Blood - Peripheral Venous Blood Culture - Preliminary NO GROWTH OBTAINED AFTER 24 HOURS, INCUBATION TO CONTINUE FOR 4 DAYS. 01/23/17 11:25 Blood - Peripheral Venous Blood Culture - Preliminary NO GROWTH OBTAINED AFTER 24 HOURS, INCUBATION TO CONTINUE FOR 4 DAYS. ASSESSMENT/PLAN: A osteomyelitis DM Plan afebrile, wbc decreasing continue with vanco/ zosyn wound culture pending blood culture negative drain collection crp elevated Visit type - Emergency Visit Emergency Visit: Yes ED Registration Date: 01/23/17 Care time: The patient presented to the Emergency Department on the above date and was hospitalized for further evaluation of their emergent condition. - New Patient This patient is new to me today: No - Critical Care Critical Care patient: No
--- NOTE | 2017-01-24 13:59 | PN ---
Teaching Attending Note Name of Resident: Jeyson Weller ATTENDING PHYSICIAN STATEMENT I saw and evaluated the patient. I reviewed the resident's note and discussed the case with the resident. I agree with the resident's findings and plan as documented. SUBJECTIVE: no complaints OBJECTIVE: ASSESSMENT AND PLAN: awaiting debridement f/u cultures continue antibiotics
[2017-01-24] MEDS ORDERED: MIDAZOLAM HCL 2 MG/2 ML SINGLE DOSE VIAL ONE ×3 (16:29→16:35)
[2017-01-24] MEDS ORDERED: LIDOCAINE HCL 2% (20ML MULTI-DOSE VIAL) NR ONE (16:30)
[2017-01-24] MEDS ORDERED: BACITRACIN 50,000 UNITS VIAL NR ONE (16:47)
[2017-01-24] MEDS ORDERED: LIDOCAINE HCL 2% (50ML VIAL) INF ONE (17:03)
--- NOTE | 2017-01-24 17:16 | OP ---
Operative Note - Note: Operative Date: 01/24/17 Pre-Operative Diagnosis: Deep abscess right foot Operation: I&D Deep, Deep tissue C&S, and wash out Findings: Copious amounts of purulent drainage with necrotic soft tissue. Bone intra- operatively seemed to be not involved Post-Operative Diagnosis: Same as Pre-op Surgeon: Ervin Pires Anesthesiologist/SECRETARY ADMINISTRATIVE ASSISTANT: Dwight Thomas Anesthesia: MAC Specimens Removed: Soft tissue Estimated Blood Loss (mls): 30 Fluid Volume Replaced (mls): 600 Operative Report Dictated: Yes
[2017-01-24] MEDS ORDERED: ONDANSETRON 4 MG/2 ML VIAL IVPUSH PRN (17:21)
[2017-01-24] MEDS ORDERED: ONDANSETRON 4 MG/2 ML VIAL IVPB PRN ×2 (17:24)
[2017-01-24] MEDS ORDERED: LACTATED RINGERS SOLUTION 1,000 ML IV SCH (17:30)
[2017-01-25] MEDS: PIPERACILLIN/TAZOB 4.5 GM 100 ML IVPB SCH ×3 (02:24→17:51)
[2017-01-25] MEDS: VANCOMYCIN 1,250 MG in DEXTROSE 5%-WATER - 250 ML IVPB SCH ×2 (05:18→13:34)
[2017-01-25] MEDS: INSULIN SLIDING SCALE (NOVOLOG) 1 VIAL SQ SCH ×2 (06:44→17:34)
[2017-01-25] MEDS ORDERED: glyBURIDE 5 MG TABLET (UD) PO SCH (07:00)
[2017-01-25 08:05] LABS: BASOPHIL 0.5 % (0-2.0); EOSINOPHIL 0.7 % (0-4.5); MCH 27.8 pg (25.7-33.7); MCHC 33.2 g/dl (32.0-35.9); MEAN CELL VOLUME 83.8 fl (80-96); MEAN PLT VOLUME 8.6 fl (7.5-11.1); NEUTROPHILS 68.8 % (42.8-82.8); PLATELET COUNT 256 K/MM3 (134-434); RDW 13.8 % (11.9-15.9); WHITE BLOOD COUNT 14.1 K/mm3 (4.0-10.0)
[2017-01-25 08:21] LABS: CALCIUM 8.4 mg/dL (8.5-10.1)
[2017-01-25 08:23] LABS: COCKROFT - GAULT 191.26; CREATININE 0.8 mg/dL (0.7-1.3)
[2017-01-25] MEDS ORDERED: PANTOPRAZOLE 40 MG TABLET (FP) PO SCH (10:00)
[2017-01-25] MEDS ORDERED: PT OWN MED DRAWER 7, Y5N ONE (10:05)
[2017-01-25] MEDS: ASPIRIN 81 MG CHEWABLE TABLETS PO SCH (10:06)
[2017-01-25] MEDS: METOPROLOL TARTRATE 25 MG TABLET (FP) PO SCH (10:06)
[2017-01-25] MEDS: PANTOPRAZOLE 40 MG TABLET (FP) PO SCH (10:06)
[2017-01-25] MEDS ORDERED: morphine CARPU-JECT 2 MG/1 ML DISP.SYRIN IVPB PRN (10:07)
[2017-01-25] MEDS: MUPIROCIN 2% TOPICAL OINTMENT 22 GM TUBE TP SCH (10:07)
[2017-01-25] MEDS: COLLAGENASE CLOSTRIDIUM HIST. 30 GRAMS TUBE TP SCH (10:07)
--- NOTE | 2017-01-25 12:56 | PN ---
Progress Note (short form) - Note Progress Note: Anesthesia POD#1 S/P I& D of great toe under MAC/TIVA Awake,alert sitting in the bed.VSS,Pain is under control. No N/V seen. Keisha Yepez MD.
--- NOTE | 2017-01-25 13:25 | PN ---
Progress Note (short form) - Note Progress Note: POST OP DAY # 1 S/ Pateitn seen at bedside, in NAD with no complaints O/ Right foot: Dressing clean, dry and intact. Upon removal would red and beefy , no drainage no mal odor no cellulits no crepitus no necrosis. Upon compression both proximally ond distally no drainage expressed just bright red blood. Abnormal Lab Results 01/24/17 01/25/17 01/25/17 06:30 06:00 06:00 WBC 14.1 H Monocytes % 14.8 H D ESR 57 H Random Glucose 127 H Calcium 8.4 L Vital Signs Period Temp Pulse Resp BP Sys/Morfin Pulse Ox Last 24 Hr 99.0 F-100.0 F 82-108 16-24 108-96528/8-89 98-100 Microbiology 01/23/17 11:25 Blood Culture - Preliminary Blood - Peripheral Venous NO GROWTH OBTAINED AFTER 48 HOURS, INCUBATION TO CONTINUE FOR 3 DAYS. 01/23/17 11:25 Blood Culture - Preliminary Blood - Peripheral Venous NO GROWTH OBTAINED AFTER 48 HOURS, INCUBATION TO CONTINUE FOR 3 DAYS. 01/23/17 10:47 Gram Stain - Final Ulcer Wound Culture - Preliminary Staphylococcus Aureus Staphylococcus Coagulase Neg Diphtheroid/Corynebacterium A/ Post op day # 2 S/P deep I&D with deep tissue cultures right foot P/ 1) Under aseptic technique dressing changed performed and the wound was re packed 2) Intra op C&S pending 3) Once Intra op C&S resulted patietn surgically stable for D/C to home 4) Will follow Problem List - Problems (1) Wound infection Code(s): T14.8 - OTHER INJURY OF UNSPECIFIED BODY REGION L08.9 - LOCAL INFECTION OF THE SKIN AND SUBCUTANEOUS TISSUE, UNSP (2) Essential (primary) hypertension Code(s): I10 - ESSENTIAL (PRIMARY) HYPERTENSION (3) Osteomyelitis due to secondary diabetes Code(s): E13.69 - OTH DIABETES MELLITUS WITH OTHER SPECIFIED COMPLICATION M86.9 - OSTEOMYELITIS, UNSPECIFIED
--- NOTE | 2017-01-25 13:35 | OP ---
DATE OF OPERATION: 01/24/2017 SURGEON: Monica Barreto DPM PREOPERATIVE DIAGNOSIS: Deep abscess, right foot. POSTOPERATIVE DIAGNOSIS: Deep abscess, right foot. ESTIMATED BLOOD LOSS: 30 mL. DRAINS: There were no drains. PACKING: The area was packed with 1-inch plain gauze soaked in bacitracin. INDICATIONS FOR THE PROCEDURE: The patient is a pleasant, 46-year-old male who is well known [facility]. He presented to [facility] yesterday with pain, swelling, fever, to his right foot. He stated over the past 3 to 4 days, his right foot got red, hot and swollen. He noticed some odor. He noticed some swelling on the top of his foot, as well as pain in his groin. He decided then to drive himself in to the hospital. He was seen in the emergency room and it was decided to admit him. When I examined him today, the patient had a red, hot, swollen right foot with fluctuance noted on the dorsolateral aspect and an ulceration on the plantar lateral aspect. Due to these clinical findings, I explained to the patient that he needed to go to the operating room and have an incision and drainage. Risks were discussed with the patient and no guarantees were given as to the outcome and the need for possible further surgery explained. After all the patient's questions were answered to his satisfaction, consent was obtained. The surgical site was then confirmed with the patient and marked with my initials. The patient was then brought down to the pre-surgical holding area where once again the procedure was discussed with the patient and then the patient was taken to the operating room. The procedure was as follows: The patient was placed on the operating room table in a supine position and in good anatomic alignment with all bony prominences padded well. A timeout was called, confirming the patient's identity, the proper extremity to be operated on, and the nature of the procedure. Once this was confirmed, the patient was sedated by the anesthesiologist and then approximately 12 mL of 2% lidocaine plain were infiltrated in an ankle block fashion to the right foot. The right foot was then prepped and draped in the usual sterile manner. A second timeout was then called, confirming the patient's identity, the proper extremity to be operated on, and the procedure. Once this was confirmed, the surgery began. Attention was directed to the right foot where utilizing a number-15 blade, a dorsal incision was made approximately 7 from the proximal interphalangeal joint of the 4th toe down to the midfoot. The incision was deepened down to the bone via sharp and blunt dissection. There was a sinus tract leading straight down to the ulcer in between the 4th and 5th metatarsal. At this time, there were copious amounts of purulent drainage noted. At this time, deep tissue cultures were taken. The foot was then exsanguinated from [id number] and rknfwryt-gh-ulfrrh, until there was no purulent drainage noted. All nonviable tissue was sharply excised with a rongeur and a number-15 blade. Deep tissue cultures were sent to Microbiology for both culture and sensitivity. The necrotic tissue removed was sent to Pathology for both gross and microscopic examination. Intraoperative inspection showed that the periosteum of the bone was intact and there seemed to be no bony involvement. The cortices of the 4th and 5th metatarsal were noted to be hard and intact. The surgical site was then flushed with 3000 mL of Lactated Ringer solution with 50,000 units of bacitracin. Once this was completed, our top layer of gloves was removed. The packing which was soaked with the bacitracin as well as some dressing sponges prior to irrigation was then packed into the wound. The surgical site was then dressed with Betadine-soaked Adaptic, Betadine-soaked gauze, dry, sterile gauze, a Lalo wrap, and an Dilshad bandage. Prior to applying the bandages, approximately 5 mL of 0.5% Marcaine plain were infiltrated in the ankle area. This was to facilitate postoperative analgesia. The sponge, needle and instrument count was noted to be correct. The patient was transported to the postanesthesia care unit with vital signs stable and in no apparent distress. The patient will be transported back to his room, as per postanesthesia care unit protocol. MONICA KOROMA DPM [id number]
--- NOTE | 2017-01-25 13:37 | PN ---
Physical Exam: SUBJECTIVE: Patient seen and examined patient feels better dressing present on right foot denies fever, chills OBJECTIVE: Vital Signs Period Temp Pulse Resp BP Sys/Morfin Pulse Ox Last 24 Hr 99.0 F-100.0 F 82-108 16-24 108-62305/8-89 98-100 GENERAL: Awake, alert, and fully oriented, in no acute distress. HEAD: Normal with no signs of trauma. HEART: s1s2 n UPPER EXTREMITIES: 2+ pulses, warm, well-perfused. No cyanosis. LOWER EXTREMITIES: dressing present on right foot, no soakage Laboratory Results - last 24 hr 01/24/17 01/24/17 01/24/17 06:30 17:27 17:56 WBC RBC Hgb Hct MCV MCHC RDW Plt Count MPV Neutrophils % Lymphocytes % Monocytes % Eosinophils % Basophils % ESR 57 H Sodium Potassium Chloride Carbon Dioxide Anion Gap BUN Creatinine POC Glucometer 134 139 Random Glucose Calcium 01/25/17 01/25/17 01/25/17 06:00 06:00 06:44 WBC 14.1 H RBC 4.50 Hgb 12.5 Hct 37.7 MCV 83.8 MCHC 33.2 RDW 13.8 Plt Count 256 MPV 8.6 Neutrophils % 68.8 D Lymphocytes % 15.2 D Monocytes % 14.8 H D Eosinophils % 0.7 Basophils % 0.5 ESR Sodium 138 Potassium 3.8 Chloride 101 Carbon Dioxide 24 D Anion Gap 13 BUN 10 D Creatinine 0.8 POC Glucometer 148 Random Glucose 127 H Calcium 8.4 L Active Medications Generic Name Dose Route Start Last Admin Trade Name Freq PRN Reason Stop Dose Admin Aspirin 81 mg 01/25/17 10:00 01/25/17 10:06 Asa - PO 81 mg DAILY YESY Administration Collagenase 1 applic 01/25/17 10:00 01/25/17 10:07 Santyl - TP Not Given DAILY YESY Fentanyl 50 mcg 01/24/17 17:21 Sublimaze Injection - IVPUSH 01/27/17 17:22 [id number] PRN PAIN Vancomycin HCl 1,250 mg/ 250 mls @ 166.667 mls/hr 01/25/17 04:30 01/25/17 13:34 Dextrose IVPB 166.667 mls/hr BID@0430,1430 YESY Administration Protocol Piperacillin Sod/Tazobactam Sod 100 mls @ 200 mls/hr 01/24/17 18:00 01/25/17 10 :06 Zosyn 4.5gm Ivpb (Pre-Docked) IVPB 200 mls/hr Q8H-IV YESY Administration Protocol Sodium Chloride 1,000 mls @ 75 mls/hr 01/24/17 20:00 01/24/17 21:26 Normal Saline - IV 75 mls/hr ASDIR YESY Administration Insulin Aspart 1 vial 01/25/17 07:00 01/25/17 06:44 Novolog Vial Sliding Scale - SQ Not Given BIDAC [facility] Protocol Metoprolol Tartrate 25 mg 01/25/17 10:00 01/25/17 10:06 Lopressor - PO 25 mg DAILY YESY Administration Morphine Sulfate 2 mg 01/25/17 10:07 01/25/17 10:45 Morphine Injection - IVPB 2 mg Q6H PRN Administration PAIN Mupirocin 1 applic 01/25/17 10:00 01/25/17 10:07 Bactroban 2% Ointment - TP Not Given DAILY YESY Ondansetron HCl 4 mg 01/24/17 17:24 Zofran Injection IVPB Q4H PRN NAUSEA Ondansetron HCl 4 mg 01/24/17 17:24 Zofran Injection IVPB Q6H PRN NAUSEA Pantoprazole Sodium 40 mg 01/25/17 10:00 01/25/17 10:06 Protonix - PO 40 mg DAILY YESY Administration Microbiology 01/24/17 18:39 Tissue-Other Gram Stain - Final 01/23/17 11:25 Blood - Peripheral Venous Blood Culture - Preliminary NO GROWTH OBTAINED AFTER 48 HOURS, INCUBATION TO CONTINUE FOR 3 DAYS. 01/23/17 11:25 Blood - Peripheral Venous Blood Culture - Preliminary NO GROWTH OBTAINED AFTER 48 HOURS, INCUBATION TO CONTINUE FOR 3 DAYS. 01/23/17 10:47 Ulcer Gram Stain - Final 01/23/17 10:47 Ulcer Wound Culture - Preliminary Staphylococcus Aureus Staphylococcus Coagulase Neg Diphtheroid/Corynebacterium ASSESSMENT/PLAN: A osteomyelitis s/p i and d DM Plan afebrile, will continue with vanco/ zosyn. wound culture pending need pick for long course antibiotic Visit type - Emergency Visit Emergency Visit: Yes ED Registration Date: 01/23/17 Care time: The patient presented to the Emergency Department on the above date and was hospitalized for further evaluation of their emergent condition. - New Patient This patient is new to me today: No - Critical Care Critical Care patient: No
--- NOTE | 2017-01-25 13:40 | PN ---
Teaching Attending Note Name of Resident: Jeyson Weller ATTENDING PHYSICIAN STATEMENT I saw and evaluated the patient. I reviewed the resident's note and discussed the case with the resident. I agree with the resident's findings and plan as documented. SUBJECTIVE: no compliants feels well OBJECTIVE: Vital Signs Period Temp Pulse Resp BP Sys/Morfin Pulse Ox Last 24 Hr 99.0 F-100.0 F 82-108 16-24 108-22384/8-89 98-100 foot is bandaged (just done by glue maker bone) CBC, BMP 01/25/17 06:00 01/25/17 06:00 operative cultures pending Laboratory Tests 01/23/17 01/24/17 04:50 06:30 ESR 57 H C-Reactive Protein 28.3 H D ASSESSMENT AND PLAN: awaiting operative cultures plan for prison iv antibiotics via PICC based on cultures should f/u in our office with Dr Love/Ismael for antibiotic management
[2017-01-25] MEDS: SODIUM CHLORIDE 1,000 ML IV SCH (18:38)
[2017-01-26] MEDS: PIPERACILLIN/TAZOB 4.5 GM 100 ML IVPB SCH ×2 (01:48→09:29)
[2017-01-26] MEDS: VANCOMYCIN 1,250 MG in DEXTROSE 5%-WATER - 250 ML IVPB SCH (05:20)
[2017-01-26] MEDS: INSULIN SLIDING SCALE (NOVOLOG) 1 VIAL SQ SCH ×2 (06:33→16:55)
[2017-01-26 08:16] LABS: MCH 27.9 pg (25.7-33.7); MCHC 33.4 g/dl (32.0-35.9); MEAN CELL VOLUME 83.6 fl (80-96); MEAN PLT VOLUME 8.5 fl (7.5-11.1); PLATELET COUNT 240 K/MM3 (134-434); RDW 13.9 % (11.9-15.9); WHITE BLOOD COUNT 9.4 K/mm3 (4.0-10.0)
[2017-01-26 08:39] LABS: CALCIUM 8.2 mg/dL (8.5-10.1); COCKROFT - GAULT 255.02; CREATININE 0.6 mg/dL (0.7-1.3)
[2017-01-26] MEDS: SODIUM CHLORIDE 1,000 ML IV SCH ×2 (09:27→11:09)
[2017-01-26] MEDS: ASPIRIN 81 MG CHEWABLE TABLETS PO SCH (09:29)
[2017-01-26] MEDS: PANTOPRAZOLE 40 MG TABLET (FP) PO SCH (09:29)
[2017-01-26] MEDS: METOPROLOL TARTRATE 25 MG TABLET (FP) PO SCH (09:29)
--- NOTE | 2017-01-26 11:22 | PN ---
Progress Note (short form) - Note Progress Note: ID VANCOMYCIN AND ZOSYN AFBRILE NO COMPLAINTS LE SURGICAL DRESSING Microbiology 01/24/17 18:39 Tissue-Other Gram Stain - Final 01/23/17 11:25 Blood - Peripheral Venous Blood Culture - Preliminary NO GROWTH OBTAINED AFTER 48 HOURS, INCUBATION TO CONTINUE FOR 3 DAYS. 01/23/17 11:25 Blood - Peripheral Venous Blood Culture - Preliminary NO GROWTH OBTAINED AFTER 48 HOURS, INCUBATION TO CONTINUE FOR 3 DAYS. Laboratory Tests 01/23/17 01/23/17 01/24/17 04:50 04:50 06:30 WBC Hgb Plt Count ESR 90 H 57 H BUN Creatinine C-Reactive Protein 28.3 H D 01/26/17 01/26/17 07:00 07:00 WBC 9.4 D Hgb 12.0 Plt Count 240 ESR BUN 12 Creatinine 0.6 L D C-Reactive Protein ASSESSMENT WOULD TREAT FOR OSTEOMYELITIS AGAIN sTAPH AURESUS PLAN STOP VANCO AN ZOSYN CEFTRIAXONE METRONIDAZOLE ( ORALLY) PICC Problem List - Problems (1) Type 2 diabetes mellitus with foot ulcer Code(s): E11.621 - TYPE 2 DIABETES MELLITUS WITH FOOT ULCER L97.509 - NON-PRESSURE CHRONIC ULCER OTH PRT UNSP FOOT W UNSP SEVERITY Qualifiers: (2) Osteomyelitis Code(s): M86.9 - OSTEOMYELITIS, UNSPECIFIED Qualifiers: Osteomyelitis location: foot Laterality: right
--- NOTE | 2017-01-26 11:41 | PN ---
Progress Note, Physician - Current Medication List Current Medications: Active Medications Aspirin (Asa -) 81 mg PO DAILY ON LICENSE OF [facility] Last Admin: 01/26/17 09:29 Dose: 81 mg Collagenase (Santyl -) 1 applic TP DAILY ON LICENSE OF [facility] Last Admin: 01/25/17 10:07 Dose: Not Given Fentanyl (Sublimaze Injection -) 50 mcg IVPUSH [id number] PRN PRN Reason: PAIN Stop: 01/27/17 17:22 Sodium Chloride (Normal Saline -) 1,000 mls @ 75 mls/hr IV ASDIR ON LICENSE OF [facility] Last Admin: 01/26/17 11:09 Dose: 75 mls/hr Ceftriaxone Sodium 2 gm/ (Dextrose) 100 mls @ 200 mls/hr IVPB DAILY ON LICENSE OF [facility] Insulin Aspart (Novolog Vial Sliding Scale -) 1 vial SQ BIDAC ON LICENSE OF [facility] PRN Reason: Protocol Last Admin: 01/26/17 06:33 Dose: Not Given Metoprolol Tartrate (Lopressor -) 25 mg PO DAILY ON LICENSE OF [facility] Last Admin: 01/26/17 09:29 Dose: 25 mg Metronidazole (Flagyl -) 500 mg PO TID ON LICENSE OF [facility] Morphine Sulfate (Morphine Injection -) 2 mg IVPB Q6H PRN PRN Reason: PAIN Last Admin: 01/25/17 10:45 Dose: 2 mg Mupirocin (Bactroban 2% Ointment -) 1 applic TP DAILY ON LICENSE OF [facility] Last Admin: 01/25/17 10:07 Dose: Not Given Ondansetron HCl (Zofran Injection) 4 mg IVPB Q4H PRN PRN Reason: NAUSEA Ondansetron HCl (Zofran Injection) 4 mg IVPB Q6H PRN PRN Reason: NAUSEA Pantoprazole Sodium (Protonix -) 40 mg PO DAILY ON LICENSE OF [facility] Last Admin: 01/26/17 09:29 Dose: 40 mg - Objective Vital Signs: Vital Signs Temperature 98 F 01/26/17 10:20 Pulse Rate 93 H 01/26/17 10:20 Respiratory Rate 18 01/26/17 10:20 Blood Pressure 128/75 01/26/17 10:20 O2 Sat by Pulse Oximetry (%) 100 01/25/17 21:00 Labs: CBC, BMP 01/26/17 07:00 01/26/17 07:00 Assessment/Plan pt comfortable vss wbc nl sx appreciated cont tx as is consider home tx iv ? pic line if needed coag neg??? maybe rocefin not best ouyt pt tx consider alternative
[2017-01-26] MEDS: metroNIDAZOLE 250 MG TABLET PO SCH ×2 (13:16→22:36)
--- NOTE | 2017-01-26 14:53 | PATH ---
Surgical Pathology Report Patient Name: JOLENE GODOY Med. Rec. #: [id number] /Age/Gender: 1970 (Age: 46) / M Account: [id number] Location: [facility] MED/SURG Taken: 01/24/2017 Received: 01/25/2017 Reported: 01/26/2017 Physicians: Ervin Pires DPM Specimen(s) Received SOFT TISSUE OF RIGHT FOOT Clinical History Cellulitis wound right foot diabetes Final Diagnosis SOFT TISSUE, RIGHT FOOT, INCISION AND DRAINAGE: ACUTE NECROTIZING INFLAMMATION AND GANGRENOUS NECROSIS. Electronically Signed Aris Sewell M.D. Gross Description Received in formalin labeled "soft tissue right foot" is a 2.2 x 2.3 x 0.4 cm aggregate of simon-parham, necrotic soft tissue fragments. A shared services representative portion is submitted in one cassette. /01/25/2017 saudi/01/25/2017
[2017-01-26] MEDS: CEFTRIAXONE 100 ML IVPB SCH (15:08)
[2017-01-26] MEDS: MUPIROCIN 2% TOPICAL OINTMENT 22 GM TUBE TP SCH (16:55)
[2017-01-26] MEDS: COLLAGENASE CLOSTRIDIUM HIST. 30 GRAMS TUBE TP SCH (16:55)
[2017-01-27] MEDS: SODIUM CHLORIDE 1,000 ML IV SCH ×2 (01:54→07:28)
[2017-01-27] MEDS: metroNIDAZOLE 250 MG TABLET PO SCH ×2 (06:17→14:02)
[2017-01-27] MEDS: INSULIN SLIDING SCALE (NOVOLOG) 1 VIAL SQ SCH (06:17)
[2017-01-27] MEDS: PANTOPRAZOLE 40 MG TABLET (FP) PO SCH (09:04)
[2017-01-27] MEDS: METOPROLOL TARTRATE 25 MG TABLET (FP) PO SCH (09:04)
[2017-01-27] MEDS: CEFTRIAXONE 100 ML IVPB SCH (09:04)
[2017-01-27 09:31] VITALS: BP 133/74; PULSE 74; TEMP 98.2
[2017-01-27] MEDS: ASPIRIN 81 MG CHEWABLE TABLETS PO SCH (12:40)
--- NOTE | 2017-01-27 13:28 | DS ---
Physical Examination Vital Signs: Vital Signs Temperature 98.2 F 01/27/17 09:30 Pulse Rate 74 01/27/17 09:30 Respiratory Rate 16 01/27/17 09:30 Blood Pressure 133/74 01/27/17 09:30 O2 Sat by Pulse Oximetry (%) 99 01/27/17 09:00 Constitutional: Yes: Well Nourished Eyes: Yes: WNL HENT: Yes: WNL Neck: Yes: WNL Cardiovascular: Yes: WNL Respiratory: Yes: WNL Gastrointestinal: Yes: WNL ...Rectal Exam: Yes: Deferred Renal/: Yes: WNL Breast(s): Yes: WNL Musculoskeletal: Yes: WNL Extremities: Yes: Other (healing wd good) Edema: No Peripheral Pulses WNL: Yes Wound/Incision: Yes: Clean/Dry Neurological: Yes: WNL ...Motor Strength: WNL Psychiatric: Yes: WNL Labs: CBC, BMP 01/26/17 07:00 01/26/17 07:00 Discharge Summary Reason For Visit: CELLULITIS WOUND ON FOOT DIABETES Current Active Problems Cellulitis (Acute) Type 2 diabetes mellitus with foot ulcer (Acute) Wound infection (Acute) Condition: Guarded - Instructions Referrals: Davonte Love MD [Staff Physician] - 2 Weeks ( ) Ervin Monroy MD [Staff Physician] - Reggie Akins MD [Primary Care Provider] - 02/01/17 Disposition: VNS/HOME HEALTH CARE - Home Medications Comprehensive Discharge Medication List: Ambulatory Orders Insulin Aspart [Novolog] 10 - 20 units SCJ ASDIR PRN 02/19/16 Mupirocin Ointment [Bactroban 2% Ointment -] 1 applic TP BID #30 applic Aspirin Coated [Ecotrin -] 81 mg PO DAILY #0 tablet.ec 10/31/16 Collagenase Clostridium Hist. [Santyl -] 1 applic TP DAILY #0 tube 10/31/16 Insulin Sliding Scale [Novolog Vial Sliding Scale -] 1 vial SQ ACHS #0 units Losartan Potassium [Cozaar] 25 mg PO DAILY #0 tablet 10/31/16 Canagliflozin/Metformin HCl [Invokamet 150-1,000 mg Tablet] 1 tab PO BID Ceftriaxone Na/Dextrose,Iso [Ceftriaxone 2 gm Piggyback] 2 gm IV DAILY #30 ml Metronidazole [Flagyl -] 500 mg PO TID #60 tablet 01/27/17 rocephin iv 2 gms x 1 mth po flagl 500 tid 14 days vns appt w me 1200 noon wed f/u w dr monroy f/u w dr love
--- NOTE | 2017-01-27 13:58 | PN ---
Progress Note (short form) - Note Progress Note: POST OP DAY # 1 S/ Pateitn seen at bedside, in NAD with no complaints O/ Right foot: Dressing clean, dry and intact. Upon removal would red and beefy , no drainage no mal odor no cellulits no crepitus no necrosis. Upon compression both proximally and distally no drainage expressed just bright red blood. Vital Signs Period Temp Pulse Resp BP Sys/Morfin Pulse Ox Last 24 Hr 97.0 F-98.6 F 68-74 16-18 130-145/68-79 97-99 Microbiology 01/24/17 18:39 Gram Stain - Final Tissue-Other Tissue Culture - Preliminary Staphylococcus Aureus Pending Organism Anaerobic Culture - Preliminary Pending Organism Pending Organism#2 01/23/17 11:25 Blood Culture - Preliminary Blood - Peripheral Venous NO GROWTH OBTAINED AFTER 96 HOURS, INCUBATION TO CONTINUE FOR 1 DAYS. 01/23/17 11:25 Blood Culture - Preliminary Blood - Peripheral Venous NO GROWTH OBTAINED AFTER 96 HOURS, INCUBATION TO CONTINUE FOR 1 DAYS. A/ Post op day # 4 S/P deep I&D with deep tissue cultures right foot P/ 1) Under aseptic technique dressing changed performed and the wound was re packed 2) Intra op C&S results noted 3) Patient to follow up in wound care on Mon02/01/17 4) Patient stable for D/C Problem List - Problems (1) Wound infection Code(s): T14.8 - OTHER INJURY OF UNSPECIFIED BODY REGION L08.9 - LOCAL INFECTION OF THE SKIN AND SUBCUTANEOUS TISSUE, UNSP (2) Essential (primary) hypertension Code(s): I10 - ESSENTIAL (PRIMARY) HYPERTENSION (3) Osteomyelitis due to secondary diabetes Code(s): E13.69 - OTH DIABETES MELLITUS WITH OTHER SPECIFIED COMPLICATION M86.9 - OSTEOMYELITIS, UNSPECIFIED
[2017-01-27] MEDS: COLLAGENASE CLOSTRIDIUM HIST. 30 GRAMS TUBE TP SCH (14:06)
[2017-01-27] MEDS: MUPIROCIN 2% TOPICAL OINTMENT 22 GM TUBE TP SCH (14:06)
== END 2017-01-27 15:07 | disposition home health service (06) | DRG 623 ==
LOC: JER 03:31 → JERBED 05:27 → J8W 08:04
PROVIDERS: ADMIT Family Medicine; ATTEND Family Medicine
PROC: 0JBQ0ZZ Excision of Right Foot Subcutaneous Tissue and Fascia, Open Approach (ICD-10-PCS; 2017-01-24)
PROC: 0J9Q0ZX Drainage of Right Foot Subcutaneous Tissue and Fascia, Open Approach, Diagnostic (ICD-10-PCS; principal; 2017-01-24 18:00)
PROC: 02HV33Z Insertion of Infusion Device into Superior Vena Cava, Percutaneous Approach (ICD-10-PCS; 2017-01-27)
PROC: B5181ZA Fluoroscopy of Superior Vena Cava using Low Osmolar Contrast, Guidance (ICD-10-PCS; 2017-01-27)
DX: E11.69 Type 2 diabetes mellitus with other specified complication (principal); M86.9 Osteomyelitis, unspecified; L97.419 Non-pressure chronic ulcer of right heel and midfoot with unspecified severity; Z79.4 Long term (current) use of insulin; E11.621 Type 2 diabetes mellitus with foot ulcer; Z89.421 Acquired absence of other right toe(s); B95.7 Other staphylococcus as the cause of diseases classified elsewhere
CPT/HCPCS: 36415; 36569; 71010-TC; 73630-TC-RT; 77001-TC; 80048; 80053; 83036; 85025; 85027; 85651; 86140; 87040; 87070; 87075; 87186; 87205; 88304-TC; 93005; 93010; 93971-TC; 94760; 99283-25; C1751

== ENCOUNTER 2017-03-23 05:49 | Inpatient (IN) | payer BC, OTHER ==
--- NOTE | 2017-03-23 07:23 | PDOC ---
History of Present Illness - General Chief Complaint: Wound Infection Stated Complaint: INFECTION/RT FOOT Time Seen by Provider: 03/23/17 07:05 - History of Present Illness Initial Comments: 03/23/17 07:14 Mr. Richard plummer patient is a 46 year old male with a significant past medical history DMII with recent 50 lbs of weight loss of who presents to the emergency department per instruction of Dr. Briones as his CRP came back at 1.8. Also endorses recent fever, chills, and lack of appetite. Reports he used to have bowel movements 1-2 times a day but recently it has become every other day. The patient denies chest pain, shortness of breath, headache and dizziness. Denies nausea, vomit, and diarrhea. Denies dysuria, frequency, urgency and hematuria. Allergies: Prior reaction to daptomycin when his blood levels went far above normal Past surgical history: Amputation of R 4th toe Social history: Denies smoking / drinking ; recreational drugs PMD - TashiReggie 03/23/17 07:16 03/23/17 07:37 03/23/17 08:08 03/23/17 10:14 03/23/17 10:47 Past History - Past Medical History Allergies/Adverse Reactions: Allergies Allergy/AdvReac Type Severity Reaction Status Date / Time daptomycin [From Cubicin] Allergy Severe Verified 03/23/17 06:07 Home Medications: Ambulatory Orders Aspirin Coated [Ecotrin -] 81 mg PO DAILY #0 tablet.ec 10/31/16 Losartan Potassium [Cozaar] 25 mg PO DAILY #0 tablet 10/31/16 Canagliflozin/Metformin HCl [Invokamet 150-1,000 mg Tablet] 1 tab PO BID Anemia: No Asthma: No Cancer: No Cardiac Disorders: No CVA: No COPD: No CHF: No Dementia: No Diabetes: Yes GI Disorders: No Disorders: No HTN: Yes Hypercholesterolemia: No Liver Disease: No Seizures: No Thyroid Disease: No - Surgical History Abdominal Surgery: No Appendectomy: No Cardiac Surgery: No Cholecystectomy: No Lung Surgery: No Neurologic Surgery: No - Immunization History Immunization Up to Date: No - Psycho/Social/Smoking Cessation Hx Suicidal Ideation: No Smoking History: Never smoked Have you smoked in the past 12 months: No Cigars Per Day: 1 Hx Alcohol Use: No Drug/Substance Use Hx: No Substance Use Type: None Hx Substance Use Treatment: No Review of Systems - Review of Systems Comments:: 03/23/17 07:14 GENERAL/CONSTITUTIONAL: +Endorses recent fever or chills. No weakness. HEAD, EYES, EARS, NOSE AND THROAT: No change in vision. No ear pain or discharge. No sore throat. CARDIOVASCULAR: No chest pain or shortness of breath RESPIRATORY: No cough, wheezing, or hemoptysis. GASTROINTESTINAL: No nausea, vomiting, diarrhea or constipation. GENITOURINARY: No dysuria, frequency, or change in urination. MUSCULOSKELETAL: +Some swelling on R foot. Healing ulcer on bottom and top of R foot. No joint or muscle swelling or pain. No neck or back pain. SKIN: No rash NEUROLOGIC: No headache, vertigo, loss of consciousness, or change in strength/ sensation. ENDOCRINE: Sugars have been around the 100's per patient log. No increased thirst. No abnormal weight change HEMATOLOGIC/LYMPHATIC: No anemia, easy bleeding, or history of blood clots. ALLERGIC/IMMUNOLOGIC: No hives or skin allergy. 03/23/17 07:39 03/23/17 08:14 03/23/17 11:25 *Physical Exam - Vital Signs Last Vital Signs Temp Pulse Resp BP Pulse Ox 98.9 F 118/74 98 03/23/17 06:06 03/23/17 06:06 03/23/17 06:06 - Physical Exam Comments: 03/23/17 07:14 GENERAL: Awake, alert, and fully oriented, in no acute distress HEAD: No signs of trauma, normocephalic, atraumatic EYES: PERRLA, EOMI, sclera anicteric, conjunctiva clear ENT: Auricles normal inspection, hearing grossly normal, nares patent, oropharynx clear without exudates. Moist mucosa NECK: Normal ROM, supple, no lymphadenopathy, JVD, or masses LUNGS: No distress, speaks full sentences, clear to auscultation bilaterally HEART: Regular rate and rhythm, normal S1 and S2, no murmurs, rubs or gallops, peripheral pulses normal and equal bilaterally. ABDOMEN: Soft, nontender, normoactive bowel sounds. No guarding, no rebound. No masses EXTREMITIES: +2 draining ulcers on top and bottom of R foot. +2 pedal edema on R side. Lack of sensation below ankle. Normal range of motion. No clubbing or cyanosis. NEUROLOGICAL: Cranial nerves II through XII grossly intact. Normal speech, normal gait, no focal sensorimotor deficits SKIN: Warm, Dry, normal turgor, no rashes or lesions noted. 03/23/17 07:16 03/23/17 08:15 03/23/17 11:26 ED Treatment Course - LABORATORY CBC & Chemistry Diagram: 03/23/17 08:09 03/23/17 08:09 Medical Decision Making - Medical Decision Making 03/23/17 10:47 Mr. Ramos presented per PCP after CRP was 1.8 for inpatient admission and IV antibiotics. After exam no further issues noted, foot wounds draining. After consulting with ID doctor, put on Vanc/Zosyn and will admit. 03/23/17 11:26 *DC/Admit/Observation/Transfer Diagnosis at time of Disposition: Type 2 diabetes mellitus with foot ulcer Qualifiers: Diabetes mellitus snf insulin use: with snf use Qualified Code(s): E11.621 - Type 2 diabetes mellitus with foot ulcer - Discharge Dispostion Admit: Yes - Referrals - Attestations Physician Attestion: 03/23/17 08:17 I, Dr. Peter Perez, attest that this document has been prepared under my direction and personally reviewed by me in its entirety. I further attest, that it accurately reflects all work, treatment, procedures and medical decision -making performed by me.
--- NOTE | 2017-03-23 08:13 | PDOC ---
Attending Attestation - Resident Resident Name: Peter Perez - ED Attending Attestation I have performed the following: I have examined & evaluated the patient, The case was reviewed & discussed with the resident, I agree w/resident's findings & plan, Exceptions are as noted - HPI HPI: 03/23/17 08:12 this is a 46 yo M with a history of DM h/o lower extremity ulcer, osteomyelitis - Physicial Exam PE: 03/23/17 11:29 On examination: + Right foot swelling Healing ulcer on bottom and top of R foot. No joint or muscle swelling or pain. 03/23/17 07:39 - Medical Decision Making 03/23/17 11:31 Will do labs Will consult ID Will plan to admit Discharge Disposition - Diagnosis Type 2 diabetes mellitus with foot ulcer Qualifiers: Diabetes mellitus half-way insulin use: with ocean transportation intermediary use Qualified Code(s): E11.621 - Type 2 diabetes mellitus with foot ulcer - Discharge Dispostion Last Admission D/C Date: 01/27/17 - Referrals Referrals: Reggie Akins MD [Primary Care Provider] - - Patient Instructions - Post Discharge Activity Heart Score/ECG Review #1 ECG reviewed & interpreted by me at: 11:39 General ECG Interpretation: Sinus Rhythm, Normal Rate, Normal Intervals, No acute ischemic changes
[2017-03-23 08:38] LABS: BASOPHIL 0.4 % (0-2.0); EOSINOPHIL 1.2 % (0-4.5); MCH 27.5 pg (25.7-33.7); MCHC 32.1 g/dl (32.0-35.9); MEAN CELL VOLUME 85.6 fl (80-96); MEAN PLT VOLUME 8.4 fl (7.5-11.1); NEUTROPHILS 64.7 % (42.8-82.8); PLATELET COUNT 276 K/MM3 (134-434); RDW 14.2 % (11.9-15.9)
[2017-03-23 09:02] LABS: ALBUMIN 3.8 g/dl (3.4-5.0); ALK PHOS 86 U/L (45-117); ANION GAP 9 (8-16); BILIRUBIN,TOTAL 0.6 mg/dL (0.2-1.0); C-REACTIVE PROTEIN 4.8 MG/DL (0.00-0.3); CALCIUM 9.1 mg/dL (8.5-10.1); CO2 26 mmol/L (21-32); CREATININE 0.8 mg/dL (0.7-1.3); GLUCOSE,RANDOM 140 mg/dL (74-106); SGOT/AST 11 U/L (15-37); SGPT/ALT 13 U/L (12-78); TOT PROT 8.6 g/dl (6.4-8.2)
--- NOTE | 2017-03-23 10:14 | PN ---
Progress Note, Physician Chief Complaint: ID Admitted from my office yesterday with a flare up of his chronic right foot osteomelitis. Followed by Dr Vale Prior surgery 01/24. Just finished antibiotic Ceftriaxone and metronidazole Now foot still swollen painful draining with fever and chills. - Objective Vital Signs: Vital Signs Temperature 98.9 F 03/23/17 06:06 Pulse Rate Respiratory Rate Blood Pressure 118/74 03/23/17 06:06 O2 Sat by Pulse Oximetry (%) 98 03/23/17 06:06 Constitutional: Yes: Well Nourished, No Distress Neck: Yes: WNL, Supple Cardiovascular: Yes: Regular Rate and Rhythm, S1, S2. No: Murmur Respiratory: Yes: WNL, Regular, CTA Bilaterally Gastrointestinal: Yes: WNL, Normal Bowel Sounds, Soft. No: Tenderness, Tenderness, Epigastrium Extremities: Yes: Other (Right foot swelling with draining open wounds with drainage seropurulent drainage) Labs: CBC, BMP 03/23/17 08:09 03/23/17 08:09 Problem List - Problems (1) Cellulitis Code(s): L03.90 - CELLULITIS, UNSPECIFIED (2) Chronic osteomyelitis Code(s): M86.60 - OTHER CHRONIC OSTEOMYELITIS, UNSPECIFIED SITE (3) Type 2 diabetes mellitus with foot ulcer Code(s): E11.621 - TYPE 2 DIABETES MELLITUS WITH FOOT ULCER L97.509 - NON-PRESSURE CHRONIC ULCER OTH PRT UNSP FOOT W UNSP SEVERITY Qualifiers: Assessment/Plan Microbiology Laboratory Tests 03/23/17 03/23/17 08:09 08:09 WBC 11.0 H Hgb 12.9 Plt Count 276 ESR Pending Creatinine 0.8 D Total Bilirubin 0.6 D ALT 13 Alkaline Phosphatase 86 C-Reactive Protein 4.8 H D Assessment Chronic osteomyelitis of the right foot with recurrence Prior MRSA wound IDDM Plan Surgical evaluation ? vascular evaluation Vancomycin and Zosyn ESR CRP Isolate Kate CAI
[2017-03-23] MEDS ORDERED: VANCOMYCIN 1,500 MG in DEXTROSE 5%-WATER - 500 ML IVPB ONE (10:15)
[2017-03-23] MEDS ORDERED: PIPERACILLIN/TAZOB 3.375 GM 3.375 GM in DEXTROSE 5%-WATER - 50 ML IVPB ONE (10:16)
[2017-03-23] MEDS ORDERED: VANCOMYCIN 1,500 MG in SODIUM CHLORIDE 500 ML IVPB ONE (10:30)
[2017-03-23 11:39] LABS: URINE APPEARANCE CLEAR; URINE BILIRUBIN NEGATIVE (NEGATIVE); URINE BLOOD NEGATIVE (NEGATIVE); URINE COLOR LTYELLOW; URINE GLUCOSE (UA) 3+ (NEGATIVE); URINE KETONE TRACE (NEGATIVE); URINE LEUK ESTERASE NEGATIVE (NEGATIVE); URINE NITRITE NEGATIVE (NEGATIVE); URINE PROTEIN NEGATIVE (NEGATIVE); URINE UROBILINOGEN NEGATIVE mg/dL (0.2-1.0)
[2017-03-23 11:49] LABS: ERYTHROCYTE SEDIMENTATION RATE 65 mm/hr (0-10)
--- NOTE | 2017-03-23 12:06 | HP ---
Admitting History and Physical - Admission Chief Complaint: sent by dr hurst for 3 sm vental rt foot new ulcers Limitations to Obtaining History: No Limitations - Past Medical History Infectious Disease: Yes: Other (rt toe great) - Past Surgical History Past Surgical History: Yes: Amputation (rt mid toe and rt nerve realease w rt sole bone sx) - Smoking History Smoking history: Never smoked Have you smoked in the past 12 months: No - Alcohol/Substance Use Hx Alcohol Use: No - Social History Usual Living Arrangement: Yes: With Spouse ADL: Independent History of Recent Travel: No Home Medications - Allergies Allergies/Adverse Reactions: Allergies Allergy/AdvReac Type Severity Reaction Status Date / Time daptomycin [From Cubicin] Allergy Severe Verified 03/23/17 06:07 - Home Medications Home Medications: Ambulatory Orders Aspirin Coated [Ecotrin -] 81 mg PO DAILY #0 tablet.ec 10/31/16 Losartan Potassium [Cozaar] 25 mg PO DAILY #0 tablet 10/31/16 Canagliflozin/Metformin HCl [Invokamet 150-1,000 mg Tablet] 1 tab PO BID Family Disease History - Family Disease History Family History: Unremarkable Review of Systems - Review of Systems Constitutional: reports: No Symptoms Eyes: reports: No Symptoms HENT: reports: No Symptoms Neck: reports: No Symptoms Cardiovascular: reports: No Symptoms Respiratory: reports: No Symptoms Gastrointestinal: reports: No Symptoms Genitourinary: reports: No Symptoms Breasts: reports: No Symptoms Reported Musculoskeletal: reports: No Symptoms Integumentary: reports: No Symptoms Neurological: reports: No Symptoms Endocrine: reports: No Symptoms Hematology/Lymphatic: reports: No Symptoms Psychiatric: reports: No Symptoms Physical Examination Vital Signs: Vital Signs Temperature 98.9 F 03/23/17 06:06 Pulse Rate Respiratory Rate Blood Pressure 118/74 03/23/17 06:06 O2 Sat by Pulse Oximetry (%) 98 03/23/17 06:06 Constitutional: Yes: Well Nourished Eyes: Yes: WNL HENT: Yes: WNL Neck: Yes: WNL Cardiovascular: Yes: WNL Respiratory: Yes: WNL Gastrointestinal: Yes: WNL ...Rectal Exam: Yes: Deferred Renal/: Yes: WNL Breast(s): Yes: WNL Musculoskeletal: Yes: WNL Extremities: Yes: Other (rt new ulcers) Peripheral Pulses WNL: Yes Integumentary: Yes: WNL Wound/Incision: Yes: Dressing Dry and Intact Neurological: Yes: WNL ...Motor Strength: WNL Psychiatric: Yes: WNL Problem List - Problems (1) Thyroid nodule Code(s): E04.1 - NONTOXIC SINGLE THYROID NODULE Assessment/Plan id f/u choice atx chk fs iv cont med dm as is
[2017-03-23] MEDS ORDERED: LOSARTAN POTASSIUM 50 MG TABLET (FP) PO ONE (12:30)
[2017-03-23] MEDS ORDERED: PIPERACILLIN/TAZOB 3.375 GM 50 ML IVPB ONE (13:46)
[2017-03-23] MEDS: SODIUM CHLORIDE 1,000 ML IV SCH (13:57)
--- NOTE | 2017-03-23 16:27 | EKG ---
Test Reason : Blood Pressure : / mmHG Vent. Rate : 092 BPM Atrial Rate : 092 BPM P-R Int : 122 ms QRS Dur : 092 ms QT Int : 368 ms P-R-T Axes : 067 007 027 degrees QTc Int : 455 ms NORMAL SINUS RHYTHM POSSIBLE LEFT ATRIAL ENLARGEMENT BORDERLINE ECG WHEN COMPARED WITH ECG OF 23-JAN-2017 04:32, NO SIGNIFICANT CHANGE WAS FOUND Confirmed by JEFF MCNALLY MD ([id number]) on 03/23/2017 4:26:57 PM Referred By: Confirmed By:JEFF MCNALLY MD
[2017-03-23] MEDS ORDERED: DEXTROSE 5%-WATER 100 ML IVPB ONE ×2 (17:36→23:04)
[2017-03-23] MEDS ORDERED: PIPERACILLIN/TAZOBACTAM 4.5 GM VIAL IVPB ONE ×2 (17:36→23:03)
[2017-03-23] MEDS: PIPERACILLIN/TAZOB 4.5 GM 4.5 GM in DEXTROSE 5%-WATER 100 ML IVPB SCH (17:42)
[2017-03-23] MEDS: metFORMIN HCL 500 MG TABLET (FP) PO SCH (17:43)
[2017-03-23] MEDS ORDERED: PIPERACILLIN/TAZOB 4.5 GM 100 ML IVPB SCH (18:00)
[2017-03-23 18:25] VITALS: BMI 27.8
[2017-03-23] MEDS: VANCOMYCIN 1,500 MG in SODIUM CHLORIDE 500 ML IVPB SCH (21:58)
[2017-03-23] MEDS ORDERED: ACETAMINOPHEN 325 MG TABLET (FP) PO PRN (22:59)
[2017-03-24] MEDS: PIPERACILLIN/TAZOB 4.5 GM 4.5 GM in DEXTROSE 5%-WATER 100 ML IVPB SCH ×2 (01:30→09:13)
[2017-03-24] MEDS: metFORMIN HCL 500 MG TABLET (FP) PO SCH ×2 (06:28→17:44)
[2017-03-24] MEDS ORDERED: PIPERACILLIN/TAZOBACTAM 4.5 GM VIAL IVPB ONE (09:05)
[2017-03-24] MEDS ORDERED: DEXTROSE 5%-WATER 100 ML IVPB ONE (09:05)
[2017-03-24] MEDS: ASPIRIN COATED 81 MG TABLET.EC PO SCH (09:12)
[2017-03-24] MEDS ORDERED: ASPIRIN 81 MG CHEWABLE TABLETS PO SCH (10:00)
[2017-03-24] MEDS: VANCOMYCIN 1,500 MG in SODIUM CHLORIDE 500 ML IVPB SCH ×2 (10:31→21:10)
[2017-03-24 10:43] LABS: BASOPHIL 0.2 % (0-2.0); EOSINOPHIL 3.6 % (0-4.5); MCH 28.1 pg (25.7-33.7); MEAN PLT VOLUME 7.8 fl (7.5-11.1); NEUTROPHILS 78.6 % (42.8-82.8); PLATELET COUNT 260 K/MM3 (134-434); RDW 14.1 % (11.9-15.9); WHITE BLOOD COUNT 9.3 K/mm3 (4.0-10.0)
[2017-03-24 11:21] LABS: ANION GAP 9 (8-16); CALCIUM 8.6 mg/dL (8.5-10.1); CO2 27 mmol/L (21-32); CREATININE 0.8 mg/dL (0.7-1.3); GLUCOSE,RANDOM 177 mg/dL (74-106)
[2017-03-24] MEDS: LISINOPRIL 5 MG TABLET (FP) PO SCH (11:53)
--- NOTE | 2017-03-24 13:26 | PN ---
Progress Note, Physician - Current Medication List Current Medications: Active Medications Acetaminophen (Tylenol -) 650 mg PO Q4H PRN PRN Reason: TEMP OVER 100.4 Last Admin: 03/23/17 23:08 Dose: 650 mg Aspirin (Ecotrin -) 81 mg PO DAILY [facility] Last Admin: 03/24/17 09:12 Dose: 81 mg Glyburide (Diabeta -) 2.5 mg PO DAILY@0700 [facility] Vancomycin HCl 1,500 mg/ (Sodium Chloride) 500 mls @ 250 mls/hr IVPB BID [facility] PRN Reason: Protocol Last Admin: 03/24/17 10:31 Dose: 250 mls/hr Sodium Chloride (Normal Saline -) 1,000 mls @ 42 mls/hr IV ASDIR [facility] Last Admin: 03/23/17 13:57 Dose: 42 mls/hr Piperacillin Sod/Tazobactam (Sod 4.5 gm/ Dextrose) 100 mls @ 200 mls/hr IVPB Q8H-IV [facility] PRN Reason: Protocol Last Admin: 03/24/17 09:13 Dose: 200 mls/hr Lisinopril (Prinivil) 2.5 mg PO DAILY [facility] Last Admin: 03/24/17 11:53 Dose: 2.5 mg Metformin HCl (Glucophage -) 1,000 mg PO BID@0700,1630 [facility] Last Admin: 03/24/17 06:28 Dose: 1,000 mg - Objective Vital Signs: Vital Signs Temperature 99.2 F 03/24/17 10:00 Pulse Rate 89 03/24/17 10:00 Respiratory Rate 20 03/24/17 10:00 Blood Pressure 133/78 03/24/17 10:00 O2 Sat by Pulse Oximetry (%) 99 03/24/17 09:00 Labs: CBC, BMP 03/24/17 10:31 03/24/17 10:31 Problem List - Problems (1) Thyroid nodule Code(s): E04.1 - NONTOXIC SINGLE THYROID NODULE Assessment/Plan pt comfortable vss dsd local care vasc to see pt chk labs in am
--- NOTE | 2017-03-24 14:06 | PN ---
Progress Note, Physician Chief Complaint: ID Dulce Benites Doing much better Pain less - Current Medication List Current Medications: Active Medications Acetaminophen (Tylenol -) 650 mg PO Q4H PRN PRN Reason: TEMP OVER 100.4 Last Admin: 03/23/17 23:08 Dose: 650 mg Aspirin (Ecotrin -) 81 mg PO DAILY [facility] Last Admin: 03/24/17 09:12 Dose: 81 mg Bacitracin (Bacitracin -) 1 applic TP DAILY [facility] Glyburide (Diabeta -) 2.5 mg PO DAILY@0700 [facility] Vancomycin HCl 1,500 mg/ (Sodium Chloride) 500 mls @ 250 mls/hr IVPB BID [facility] PRN Reason: Protocol Last Admin: 03/24/17 10:31 Dose: 250 mls/hr Sodium Chloride (Normal Saline -) 1,000 mls @ 42 mls/hr IV ASDIR [facility] Last Admin: 03/23/17 13:57 Dose: 42 mls/hr Piperacillin Sod/Tazobactam (Sod 4.5 gm/ Dextrose) 100 mls @ 200 mls/hr IVPB Q8H-IV [facility] PRN Reason: Protocol Last Admin: 03/24/17 09:13 Dose: 200 mls/hr Lisinopril (Prinivil) 2.5 mg PO DAILY [facility] Last Admin: 03/24/17 11:53 Dose: 2.5 mg Metformin HCl (Glucophage -) 1,000 mg PO BID@0700,1630 [facility] Last Admin: 03/24/17 06:28 Dose: 1,000 mg - Objective Vital Signs: Vital Signs Temperature 99.2 F 03/24/17 10:00 Pulse Rate 89 03/24/17 10:00 Respiratory Rate 20 03/24/17 10:00 Blood Pressure 133/78 03/24/17 10:00 O2 Sat by Pulse Oximetry (%) 99 03/24/17 09:00 Eyes: Yes: WNL, Conjunctiva Clear HENT: Yes: WNL, Atraumatic Neck: Yes: WNL, Supple Cardiovascular: Yes: Regular Rate and Rhythm, S1, S2 Respiratory: Yes: WNL, Regular, CTA Bilaterally Gastrointestinal: Yes: WNL, Normal Bowel Sounds, Soft Extremities: Yes: Other (swelling less drainage less pain less) Labs: CBC, BMP 03/24/17 10:31 03/24/17 10:31 Problem List - Problems (1) Cellulitis Code(s): L03.90 - CELLULITIS, UNSPECIFIED (2) Chronic osteomyelitis Code(s): M86.60 - OTHER CHRONIC OSTEOMYELITIS, UNSPECIFIED SITE (3) Type 2 diabetes mellitus with foot ulcer Code(s): E11.621 - TYPE 2 DIABETES MELLITUS WITH FOOT ULCER L97.509 - NON-PRESSURE CHRONIC ULCER OTH PRT UNSP FOOT W UNSP SEVERITY Qualifiers: Diabetes mellitus journalists and other writers insulin use: with journalists and other writers use Qualified Code(s): E11.621 - Type 2 diabetes mellitus with foot ulcer; L97.509 - Non-pressure chronic ulcer of other part of unspecified foot with unspecified severity Assessment/Plan Microbiology 03/23/17 11:01 Ulcer Gram Stain - Final 03/23/17 11:01 Ulcer Wound Culture - Preliminary Presumptive Mrsa (Pbp2a Pos) 03/23/17 08:09 Blood - Peripheral Venous Blood Culture - Preliminary NO GROWTH OBTAINED AFTER 24 HOURS, INCUBATION TO CONTINUE FOR 4 DAYS. 03/23/17 08:09 Blood - Peripheral Venous Blood Culture - Preliminary NO GROWTH OBTAINED AFTER 24 HOURS, INCUBATION TO CONTINUE FOR 4 DAYS. Laboratory Tests 03/23/17 03/24/17 03/24/17 08:09 10:31 10:31 WBC 9.3 Hgb 12.6 Plt Count 260 ESR 65 H BUN 12 D Creatinine 0.8 Assessment Chronic osteo foot MRSA improving Plan Stop Kamari Vancom level Improving Kate CAI
[2017-03-24] MEDS: BACITRACIN 15 GM TUBE TOPICAL OINTMENT TP SCH (17:44)
[2017-03-24] MEDS: SODIUM CHLORIDE 1,000 ML IV SCH ×2 (17:56→21:14)
--- NOTE | 2017-03-24 19:19 | CONSULT ---
Consult - History of Present Illness History of Present Illness: 46 year old man DM with chronic infection of right foot for over 1 year. He has had several operative debridements and long course antibiotics. He has also received hyperbaric oxygen treatments. He is now readmitted with foot wound and culture positive for MRSA. - History Source History Provided By: Medical Record Limitations to Obtaining History: No Limitations - Past Medical History Infectious Disease: Yes: Other (rt toe great) Endocrine: Yes: Diabetes Mellitus - Past Surgical History Past Surgical History: Yes: Amputation (rt mid toe and rt nerve realease w rt sole bone sx) - Alcohol/Substance Use Hx Alcohol Use: No - Smoking History Smoking history: Never smoked Have you smoked in the past 12 months: No - Social History ADL: Independent History of Recent Travel: No Home Medications - Allergies Allergies/Adverse Reactions: Allergies Allergy/AdvReac Type Severity Reaction Status Date / Time daptomycin [From Cubicin] Allergy Severe Verified 03/23/17 06:07 - Home Medications Home Medications: Ambulatory Orders Aspirin Coated [Ecotrin -] 81 mg PO DAILY #0 tablet.ec 10/31/16 Losartan Potassium [Cozaar] 25 mg PO DAILY #0 tablet 10/31/16 Canagliflozin/Metformin HCl [Invokamet 150-1,000 mg Tablet] 1 tab PO BID Physical Exam Vital Signs: Vital Signs Temperature 99.1 F 03/24/17 17:12 Pulse Rate 78 03/24/17 15:02 Respiratory Rate 18 03/24/17 15:02 Blood Pressure 126/73 03/24/17 17:12 O2 Sat by Pulse Oximetry (%) 99 03/24/17 09:00 Extremities: Yes: Other (S/p right 4th toe amputation) Edema: Yes Edema: RLE: 3+ Peripheral Pulses WNL: Yes (Bounding DP and PT bilaterally) Wound/Incision: Yes: Other (Right plantar ulcer with bloody drainage.) Labs: CBC, BMP 03/24/17 10:31 03/24/17 10:31 Imaging - Results Other: Other (Arterial doppler/duplex in January was normal with LOREN > 1.0 bilaterally.) Problem List - Problems (1) Chronic osteomyelitis Assessment/Plan: Chronic infection of right foot which has persisted despite debridement and antibiotics. Normal vascular exam - No evidence for arterial insufficiency. Code(s): M86.60 - OTHER CHRONIC OSTEOMYELITIS, UNSPECIFIED SITE
[2017-03-25] MEDS ORDERED: PT OWN MED DRAWER 7, Y5N ONE ×2 (05:49→09:34)
[2017-03-25] MEDS: metFORMIN HCL 500 MG TABLET (FP) PO SCH ×2 (06:34→17:44)
[2017-03-25] MEDS: glyBURIDE 2.5 MG TABLET (FP) PO SCH (06:34)
[2017-03-25 07:32] LABS: BASOPHIL 0.4 % (0-2.0); EOSINOPHIL 6.8 % (0-4.5); MCH 28.1 pg (25.7-33.7); MCHC 32.9 g/dl (32.0-35.9); MEAN CELL VOLUME 85.6 fl (80-96); MEAN PLT VOLUME 8.4 fl (7.5-11.1); PLATELET COUNT 274 K/MM3 (134-434); RDW 14.2 % (11.9-15.9); WHITE BLOOD COUNT 7.1 K/mm3 (4.0-10.0)
[2017-03-25 07:42] LABS: ANION GAP 9 (8-16); CALCIUM 8.8 mg/dL (8.5-10.1); CO2 26 mmol/L (21-32); CREATININE 0.6 mg/dL (0.7-1.3); GLUCOSE,RANDOM 124 mg/dL (74-106)
--- NOTE | 2017-03-25 09:00 | PN ---
Progress Note (short form) - Note Progress Note: ID Now on vancomycin alone Feels better Selected Entries 03/25/17 06:00 Temperature 99.1 F Pulse Rate 78 Respiratory 20 Rate Blood Pressure 130/74 RLL with 2 open wounds swelling less tenderness less Laboratory Tests 03/23/17 03/24/17 03/25/17 08:09 15:00 05:50 WBC 7.1 Hgb 12.6 Hct 38.4 Plt Count 274 ESR 65 H BUN Creatinine Vancomycin Pre-Dose 18.659 H* 03/25/17 05:50 WBC Hgb Hct Plt Count ESR BUN 11 Creatinine 0.6 L D Vancomycin Pre-Dose Assessment Chronic osteomyelitis Clinically improving wita Vanco Plan Continue Vancomycin as ordered Anticipate we will need to do once again fdc treatment Vanco and fdc chronic surpression. Kate CAI Problem List - Problems (1) Cellulitis Code(s): L03.90 - CELLULITIS, UNSPECIFIED (2) Chronic osteomyelitis Code(s): M86.60 - OTHER CHRONIC OSTEOMYELITIS, UNSPECIFIED SITE (3) Type 2 diabetes mellitus with foot ulcer Code(s): E11.621 - TYPE 2 DIABETES MELLITUS WITH FOOT ULCER L97.509 - NON-PRESSURE CHRONIC ULCER OTH PRT UNSP FOOT W UNSP SEVERITY Qualifiers: Diabetes mellitus fdc insulin use: with intermodal customer service use Qualified Code(s): E11.621 - Type 2 diabetes mellitus with foot ulcer; L97.509 - Non-pressure chronic ulcer of other part of unspecified foot with unspecified severity
[2017-03-25] MEDS: LISINOPRIL 5 MG TABLET (FP) PO SCH (09:46)
[2017-03-25] MEDS: ASPIRIN COATED 81 MG TABLET.EC PO SCH (09:46)
[2017-03-25] MEDS: VANCOMYCIN 1,500 MG in SODIUM CHLORIDE 500 ML IVPB SCH ×2 (09:49→22:18)
[2017-03-25] MEDS ORDERED: BACITRACIN 15 GM TUBE TOPICAL OINTMENT TP SCH (10:00)
[2017-03-25] MEDS: SODIUM CHLORIDE 1,000 ML IV SCH (12:30)
[2017-03-25] MEDS: BACITRACIN 15 GM TUBE TOPICAL OINTMENT TP SCH (17:01)
[2017-03-26] MEDS: SODIUM CHLORIDE 1,000 ML IV SCH (06:28)
[2017-03-26] MEDS: glyBURIDE 2.5 MG TABLET (FP) PO SCH (06:29)
[2017-03-26] MEDS: metFORMIN HCL 500 MG TABLET (FP) PO SCH ×2 (06:29→17:30)
[2017-03-26 07:51] LABS: BASOPHIL 0.5 % (0-2.0); EOSINOPHIL 4.7 % (0-4.5); MCHC 32.8 g/dl (32.0-35.9); MEAN CELL VOLUME 85.2 fl (80-96); MEAN PLT VOLUME 8.3 fl (7.5-11.1); NEUTROPHILS 60.6 % (42.8-82.8); PLATELET COUNT 293 K/MM3 (134-434); RDW 14.3 % (11.9-15.9); WHITE BLOOD COUNT 7.8 K/mm3 (4.0-10.0)
--- NOTE | 2017-03-26 08:12 | PN ---
Progress Note, Physician Chief Complaint: c/o of oral moon had mild temp last night foot better no other complaints - Current Medication List Current Medications: Active Medications Acetaminophen (Tylenol -) 650 mg PO Q4H PRN PRN Reason: TEMP OVER 100.4 Last Admin: 03/23/17 23:08 Dose: 650 mg Aspirin (Ecotrin -) 81 mg PO DAILY [facility] Last Admin: 03/25/17 09:46 Dose: 81 mg Bacitracin (Bacitracin -) 1 applic TP DAILY [facility] Last Admin: 03/25/17 17:01 Dose: 1 applic Benzocaine/Menthol (Cepacol Lozenge -) 1 each MM QID PRN PRN Reason: SORE THROAT Glyburide (Diabeta -) 2.5 mg PO DAILY@0700 [facility] Last Admin: 03/26/17 06:29 Dose: 2.5 mg Vancomycin HCl 1,500 mg/ (Sodium Chloride) 500 mls @ 250 mls/hr IVPB BID [facility] PRN Reason: Protocol Last Admin: 03/25/17 22:18 Dose: 250 mls/hr Sodium Chloride (Normal Saline -) 1,000 mls @ 42 mls/hr IV ASDIR [facility] Last Admin: 03/26/17 06:28 Dose: 42 mls/hr Lisinopril (Prinivil) 2.5 mg PO DAILY [facility] Last Admin: 03/25/17 09:46 Dose: 2.5 mg Metformin HCl (Glucophage -) 1,000 mg PO BID@0700,1630 [facility] Last Admin: 03/26/17 06:29 Dose: 1,000 mg - Objective Vital Signs: Vital Signs Temperature 97.9 F 03/26/17 06:00 Pulse Rate 65 03/26/17 06:00 Respiratory Rate 18 03/26/17 06:00 Blood Pressure 128/73 03/26/17 06:00 O2 Sat by Pulse Oximetry (%) 97 03/25/17 21:00 Constitutional: Yes: Well Nourished, No Distress Eyes: Yes: WNL HENT: Yes: Other (oral moon) Neck: Yes: WNL Cardiovascular: Yes: WNL Respiratory: Yes: WNL Gastrointestinal: Yes: WNL ...Rectal Exam: Yes: Deferred Genitourinary: Yes: WNL Breast(s): Yes: WNL Musculoskeletal: Yes: WNL Extremities: Yes: WNL Edema: No Peripheral Pulses WNL: Yes Integumentary: Yes: WNL Wound/Incision: Yes: Dressing Dry and Intact Neurological: Yes: WNL ...Motor Strength: WNL Psychiatric: Yes: WNL Labs: CBC, BMP 03/26/17 06:10 Problem List - Problems (1) Thyroid nodule Code(s): E04.1 - NONTOXIC SINGLE THYROID NODULE Assessment/Plan orabase paste for moon tylenol for temps do vdrl mono spot test if cont will do lenghty w/u cult throat order done will give steroids due to increasing pain and diff swallowing take in acount gluc may go up faticiously cont all tx as is
[2017-03-26 08:16] LABS: ANION GAP 6 (8-16); CALCIUM 8.9 mg/dL (8.5-10.1); CO2 29 mmol/L (21-32); CREATININE 0.6 mg/dL (0.7-1.3); GLUCOSE,RANDOM 129 mg/dL (74-106)
[2017-03-26] MEDS ORDERED: PT OWN MED DRAWER 7, Y5N ONE ×2 (10:09→21:52)
[2017-03-26] MEDS: LISINOPRIL 5 MG TABLET (FP) PO SCH (10:12)
[2017-03-26] MEDS: ASPIRIN COATED 81 MG TABLET.EC PO SCH (10:12)
[2017-03-26] MEDS: predniSONE 20 MG TABLET (UD) PO SCH (10:12)
[2017-03-26] MEDS: VANCOMYCIN 1,500 MG in SODIUM CHLORIDE 500 ML IVPB SCH ×3 (10:14→21:34)
[2017-03-26] MEDS: BACITRACIN 15 GM TUBE TOPICAL OINTMENT TP SCH (10:16)
[2017-03-26] MEDS: TRIAMCINOLONE ACET 0.1% ORAL 5 GM TUBE DT SCH ×2 (10:31→21:37)
[2017-03-26] MEDS: BENZOCAINE/MENTH/CETYLPYRD CL 1 EACH LOZENGE MM PRN (22:00)
[2017-03-27] MEDS: glyBURIDE 2.5 MG TABLET (FP) PO SCH (06:31)
[2017-03-27] MEDS: metFORMIN HCL 500 MG TABLET (FP) PO SCH (06:31)
[2017-03-27] MEDS: BENZOCAINE/MENTH/CETYLPYRD CL 1 EACH LOZENGE MM PRN (06:33)
[2017-03-27] MEDS ORDERED: PT OWN MED DRAWER 7, Y5N ONE (06:43)
[2017-03-27 07:15] LABS: BASOPHIL 0.4 % (0-2.0); EOSINOPHIL 2.5 % (0-4.5); MCHC 33.2 g/dl (32.0-35.9); MEAN CELL VOLUME 84.5 fl (80-96); MEAN PLT VOLUME 8.1 fl (7.5-11.1); NEUTROPHILS 54.3 % (42.8-82.8); PLATELET COUNT 283 K/MM3 (134-434); RDW 14.1 % (11.9-15.9); WHITE BLOOD COUNT 7.4 K/mm3 (4.0-10.0)
[2017-03-27 07:58] LABS: ANION GAP 8 (8-16); CALCIUM 8.7 mg/dL (8.5-10.1); CO2 26 mmol/L (21-32); CREATININE 0.6 mg/dL (0.7-1.3); GLUCOSE,RANDOM 122 mg/dL (74-106)
--- NOTE | 2017-03-27 10:20 | PN ---
Progress Note, Physician - Current Medication List Current Medications: Active Medications Acetaminophen (Tylenol -) 650 mg PO Q4H PRN PRN Reason: TEMP OVER 100.4 Last Admin: 03/23/17 23:08 Dose: 650 mg Aspirin (Ecotrin -) 81 mg PO DAILY [facility] Last Admin: 03/26/17 10:12 Dose: 81 mg Bacitracin (Bacitracin -) 1 applic TP DAILY [facility] Last Admin: 03/26/17 10:16 Dose: 1 applic Benzocaine/Menthol (Cepacol Lozenge -) 1 each MM QID PRN PRN Reason: SORE THROAT Last Admin: 03/27/17 06:33 Dose: 1 each Glyburide (Diabeta -) 2.5 mg PO DAILY@0700 [facility] Last Admin: 03/27/17 06:31 Dose: 2.5 mg Vancomycin HCl 1,500 mg/ (Sodium Chloride) 500 mls @ 250 mls/hr IVPB BID [facility] PRN Reason: Protocol Last Admin: 03/26/17 21:34 Dose: 250 mls/hr Sodium Chloride (Normal Saline -) 1,000 mls @ 42 mls/hr IV ASDIR [facility] Last Admin: 03/26/17 06:28 Dose: 42 mls/hr Lisinopril (Prinivil) 2.5 mg PO DAILY [facility] Last Admin: 03/26/17 10:12 Dose: 2.5 mg Metformin HCl (Glucophage -) 1,000 mg PO BID@0700,1630 [facility] Last Admin: 03/27/17 06:31 Dose: 1,000 mg Prednisone (Deltasone -) 20 mg PO DAILY [facility] Last Admin: 03/26/17 10:12 Dose: 20 mg Triamcinolone Acetonide (Aristocort 0.1% Oral Paste -) 1 applic DT BID [facility] Last Admin: 03/26/17 21:37 Dose: 1 applic - Objective Vital Signs: Vital Signs Temperature 97.9 F 03/27/17 06:00 Pulse Rate 73 03/27/17 06:00 Respiratory Rate 20 03/27/17 06:00 Blood Pressure 163/86 03/27/17 06:00 O2 Sat by Pulse Oximetry (%) 99 03/26/17 21:00 Labs: CBC, BMP 03/27/17 05:40 03/27/17 05:40 Problem List - Problems (1) Thyroid nodule Code(s): E04.1 - NONTOXIC SINGLE THYROID NODULE Assessment/Plan pt oral soeres pain subciding able to swallow w/u diff now vss pic line rt foot healing well fs ok bp ok labs nl cont tx as is f/u id for iv atx out pt
[2017-03-27] MEDS: SODIUM CHLORIDE 1,000 ML IV SCH (10:36)
[2017-03-27] MEDS: VANCOMYCIN 1,500 MG in SODIUM CHLORIDE 500 ML IVPB SCH (10:36)
[2017-03-27] MEDS: BACITRACIN 15 GM TUBE TOPICAL OINTMENT TP SCH (10:37)
[2017-03-27] MEDS: TRIAMCINOLONE ACET 0.1% ORAL 5 GM TUBE DT SCH (10:37)
[2017-03-27] MEDS: predniSONE 20 MG TABLET (UD) PO SCH (10:38)
[2017-03-27] MEDS: LISINOPRIL 5 MG TABLET (FP) PO SCH (10:38)
[2017-03-27] MEDS: ASPIRIN COATED 81 MG TABLET.EC PO SCH (10:38)
[2017-03-27] MEDS ORDERED: PICC LINE 8 ML FLUSH PROTOCOL IVPUSH PRN (13:33)
--- NOTE | 2017-03-27 13:33 | PN ---
Progress Note, Physician Chief Complaint: ID Vancomycin continues NO complaints Feels his foot is better then admission pain less - Current Medication List Current Medications: Active Medications Acetaminophen (Tylenol -) 650 mg PO Q4H PRN PRN Reason: TEMP OVER 100.4 Last Admin: 03/23/17 23:08 Dose: 650 mg Aspirin (Ecotrin -) 81 mg PO DAILY [facility] Last Admin: 03/27/17 10:38 Dose: 81 mg Bacitracin (Bacitracin -) 1 applic TP DAILY [facility] Last Admin: 03/27/17 10:37 Dose: 1 applic Benzocaine/Menthol (Cepacol Lozenge -) 1 each MM QID PRN PRN Reason: SORE THROAT Last Admin: 03/27/17 06:33 Dose: 1 each Glyburide (Diabeta -) 2.5 mg PO DAILY@0700 [facility] Last Admin: 03/27/17 06:31 Dose: 2.5 mg Vancomycin HCl 1,500 mg/ (Sodium Chloride) 500 mls @ 250 mls/hr IVPB BID [facility] PRN Reason: Protocol Last Admin: 03/27/17 10:36 Dose: 250 mls/hr Sodium Chloride (Normal Saline -) 1,000 mls @ 42 mls/hr IV ASDIR [facility] Last Admin: 03/27/17 10:36 Dose: 42 mls/hr Lisinopril (Prinivil) 2.5 mg PO DAILY [facility] Last Admin: 03/27/17 10:38 Dose: 2.5 mg Metformin HCl (Glucophage -) 1,000 mg PO BID@0700,1630 [facility] Last Admin: 03/27/17 06:31 Dose: 1,000 mg Prednisone (Deltasone -) 20 mg PO DAILY [facility] Last Admin: 03/27/17 10:38 Dose: 20 mg Triamcinolone Acetonide (Aristocort 0.1% Oral Paste -) 1 applic DT BID [facility] Last Admin: 03/27/17 10:37 Dose: 1 applic - Objective Vital Signs: Vital Signs Temperature 98.6 F 03/27/17 09:15 Pulse Rate 69 03/27/17 09:15 Respiratory Rate 18 03/27/17 09:15 Blood Pressure 121/69 03/27/17 09:15 O2 Sat by Pulse Oximetry (%) 99 03/26/17 21:00 Constitutional: Yes: Well Nourished, No Distress Neck: Yes: WNL, Supple Cardiovascular: Yes: Regular Rate and Rhythm, S1, S2 Respiratory: Yes: WNL, Regular, CTA Bilaterally Gastrointestinal: Yes: WNL, Normal Bowel Sounds, Soft. No: Tenderness, Tenderness, Epigastrium Extremities: Yes: Other (Foot deformity Swelling less drainagage less) Labs: CBC, BMP 03/27/17 05:40 03/27/17 05:40 Problem List - Problems (1) Cellulitis Code(s): L03.90 - CELLULITIS, UNSPECIFIED (2) Chronic osteomyelitis Code(s): M86.60 - OTHER CHRONIC OSTEOMYELITIS, UNSPECIFIED SITE (3) Type 2 diabetes mellitus with foot ulcer Code(s): E11.621 - TYPE 2 DIABETES MELLITUS WITH FOOT ULCER L97.509 - NON-PRESSURE CHRONIC ULCER OTH PRT UNSP FOOT W UNSP SEVERITY Qualifiers: Diabetes mellitus intermediate insulin use: with intermediate use Qualified Code(s): E11.621 - Type 2 diabetes mellitus with foot ulcer; L97.509 - Non-pressure chronic ulcer of other part of unspecified foot with unspecified severity Assessment/Plan Laboratory Tests 03/24/17 03/26/17 03/27/17 15:00 06:10 05:40 WBC 7.4 Hgb 12.0 Plt Count 283 BUN Creatinine Vancomycin Pre-Dose 18.659 H* RPR Titer Nonreactive Monoscreen Negative 03/27/17 05:40 WBC Hgb Plt Count BUN 11 Creatinine 0.6 L Vancomycin Pre-Dose RPR Titer Monoscreen Assessment Chronic osteo MRSA wound Plan PICC line today Discharge on IV Vancomycin bid Wound care as outpt Kate CAI
[2017-03-27 15:06] VITALS: BP 130/78; PULSE 67; TEMP 98.5
== END 2017-03-27 17:51 | disposition home or self-care (01) | DRG 638 ==
LOC: JER 05:49 → JERBED 11:27 → J7W 17:15
PROVIDERS: ADMIT Family Medicine; ATTEND Family Medicine
PROC: 02HV33Z Insertion of Infusion Device into Superior Vena Cava, Percutaneous Approach (ICD-10-PCS; principal; 2017-03-27)
DX: E11.69 Type 2 diabetes mellitus with other specified complication (principal); M86.671 Other chronic osteomyelitis, right ankle and foot; L03.90 Cellulitis, unspecified; E11.621 Type 2 diabetes mellitus with foot ulcer; L97.519 Non-pressure chronic ulcer of other part of right foot with unspecified severity; E04.1 Nontoxic single thyroid nodule; R63.4 Abnormal weight loss; Z68.27 Body mass index [BMI] 27.0-27.9, adult; A49.02 Methicillin resistant Staphylococcus aureus infection, unspecified site; Z89.421 Acquired absence of other right toe(s); Z79.4 Long term (current) use of insulin
CPT/HCPCS: 36415; 36569; 71010-TC; 73630-TC-RT; 80048; 80053; 81003; 83605; 85025; 85651; 86140; 86308; 86593; 87040; 87070; 87186; 87205; 93005; 93010; 99285-25; G0480